=== PATIENT | male | born 1950 | race Caucasian/White ===

== ENCOUNTER 2020-01-04 07:59 | Outpatient (CLI) | payer MEDICARE, SELFPAY ==
[2020-01-04 09:22] LABS: Anion Gap 13.1 mmol/L (7-16); Blood Urea Nitrogen 10 mg/dL (7-18); Calcium 9.7 mg/dL (8.5-10.1); Carbon Dioxide 31 mmol/L (21-32); Chloride 105 mmol/L (98-108); Estimated Glomerular Filt Rate > 60; Glucose 90 mg/dL (70-99); Osmolality Calculated 297 mOsm/kg (285-295); Potassium 5.1 mmol/L (3.5-5.1); Sodium 144 mmol/L (136-145)
[2020-01-04 09:26] LABS: Vitamin B12 > 2000 pg/mL (193-986)
== END 2020-01-04 08:00 | disposition home or self-care (01) ==
LOC: CHSLAB 08:01
PROVIDERS: PCP Family Medicine; Visit Provider Family Medicine
DX: E53.8 Deficiency of other specified B group vitamins (principal); I10 Essential (primary) hypertension
CPT/HCPCS: 36415; 80048; 82607

== ENCOUNTER 2020-04-04 07:22 | Outpatient (CLI) | payer MEDICARE, MEDICAID, SELFPAY ==
--- NOTE | 2020-04-04 10:30 | EST_ITS ---
Patient Info Name: Albert Merino Age: 70 years : 1950 Gender: Male Ht: 71 in Wt: 145 lbs BSA: 1.81 m2 HR: 66 bpm BP: 189 / 102 mmHg Heart Rhythm: Sinus Rhythm Technical Quality: Excellent Exam Date: 04/04/2020 10:35 AM Exam Location: [facility] Patient Status: Outpatient Admit Date: 04/04/2020 Staff Ordering Physician: Kevin Brooks MD Attending Provider: Kevin Brooks MD Exercise Technologist: Celine Mcmahon CRT Exercise Physician: Irene Jimenez CEP Exam Type: CA stress criselda w NM Study Info Indications AbnormalEKG - A nuclear stress test was performed. History/Risk Factors Hypertension: Yes History/Risk Factors HTN. Summary 1. 1. Negative lexiscan stress test for ischemic ST changes by ECG criteria. 2. 2. Baseline hypertension. 3. 3. Nuclear scan to follow and will be reported separately. Please correlate with it. Protocol: LEXISCAN Stress ECG Details Stage: REST Duration (min): 2 min : 1 sec HR (bpm): 68 SBP (mmHg): 189 DBP (mmHg): 102 Stage: REST Duration (min): 2 min : 33 sec HR (bpm): 67 SBP (mmHg): 189 DBP (mmHg): 102 Stage: STAGE 1 Duration (min): 0 min : 10 sec HR (bpm): 65 SBP (mmHg): 189 DBP (mmHg): 102 Stage: RECOVERY Duration (min): 0 min : 49 sec HR (bpm): 89 SBP (mmHg): 189 DBP (mmHg): 102 Stage: RECOVERY Duration (min): 1 min : 49 sec HR (bpm): 106 SBP (mmHg): 151 DBP (mmHg): 73 Stage: RECOVERY Duration (min): 2 min : 49 sec HR (bpm): 97 SBP (mmHg): 153 DBP (mmHg): 75 Stage: RECOVERY Duration (min): 3 min : 49 sec HR (bpm): 95 SBP (mmHg): 163 DBP (mmHg): 80 Stage: RECOVERY Duration (min): 4 min : 49 sec HR (bpm): 93 SBP (mmHg): 161 DBP (mmHg): 81 Stage: RECOVERY Duration (min): 5 min : 49 sec HR (bpm): 93 SBP (mmHg): 155 DBP (mmHg): 80 Stage: RECOVERY Duration (min): 6 min : 15 sec HR (bpm): --- SBP (mmHg): 155 DBP (mmHg): 80 Rest HR: 67 bpm Peak HR: 108 bpm Rest Sys BP: 189 mmHg Peak Sys BP: 163 mmHg Max Pred HR: 148 bpm % Max Pred HR: 73 % Target HR: 126 bpm Max RPP: 17,604 bpm*mmHg Termination Reason: Completion of Protocol Cardiac Symptoms: Lightheaded/pre-syncope, Dyspnea Total Time: 0 min : 10 sec Rest [place] BP: 102 mmHg Peak [place] BP: 80 mmHg Total Dose: 0.4 mg Resting ECG Normal sinus rhythm, anteroseptal infarct, age indeterminate. Stress ECG No ST changes. Arrhythmias None. Report Signatures
== END 2020-04-04 07:23 | disposition home or self-care (01) ==
LOC: CHSIMG 07:24
PROVIDERS: PCP Family Medicine; Visit Provider Family Medicine
DX: R94.31 Abnormal electrocardiogram [ECG] [EKG] (principal)
CPT/HCPCS: 78452; 93017; A9502; J2785

== ENCOUNTER 2022-10-11 09:18 | Outpatient (CLI) | payer MEDICARE, MEDICAID, SELFPAY ==
--- NOTE | ~2022-10-11 | XR_ITS ---
EXAMINATION: XR barium swallow DATE: 10/11/2022 09:45 INDICATION: Dysphagia TECHNIQUE: The patient drank thick barium and gas-producing crystals. Fluoroscopic spot radiographs o f the hypopharynx and esophagus were obtained. Fluoroscopy exposure time was 0.5 minutes. A total of 346 fluoroscopic images were recorded. COMPARISON: None. FINDINGS: The pharynx is symmetric and without evidence of mass lesion or mucosal irregularity. There was some laryngeal penetration without aspiration initial swallow with small amount of contrast jaren g the posterior margin of the epiglottis and minimal amount of contrast along the cephalad aspect of the cords. There is both vallecular and piriform sinus residue. Following the swallow on the double c ontrast imaging of the esophagus the patient experienced an episode of coughing. Some aspirated contr ast was then observed extending down both the left and right mainstem bronchi and into the more perip heral bronchi of the left lower lobe. Given the significant aspiration, the study was terminated at t his point. The esophagus appears normal without mass or stricture. No evident hiatal hernia. IMPRESSION: 1. Small amount of laryngeal penetration without aspiration on the initial swallow with significant a spiration which elicited a cough reflex and with contrast extending CT the bronchi of the left lower lobe on the subsequent swallow. Upon further discussion with the patient, he describes similar prior episodes of coughing after swallowing. For this reason the study was halted at this point. Would stro ngly recommend more focused assessment of pharyngeal dysphagia with a dedicated modified barium swall ow study performed in conjunction with the Department of speech pathology. Reviewed, dictated and finalized at location A. NG FLOOR SERVICE WORKER IMPRESSION: 1. Small amount of laryngeal penetration without aspiration on the initial swal low with significant aspiration which elicited a cough reflex and with contrast extending CT the bronchi of the left lower lobe on the subsequent swallow. Upo n further discussion with the patient, he describes similar prior episodes of c oughing after swallowing. For this reason the study was halted at this point. W ould strongly recommend more focused assessment of pharyngeal dysphagia with a dedicated modified barium swallow study performed in conjunction with the [facility] of speech pathology.
== END 2022-10-11 09:19 | disposition home or self-care (01) ==
LOC: CHSIMG 09:19
PROVIDERS: PCP Family Medicine; Visit Provider Family Medicine
DX: R13.10 Dysphagia, unspecified (principal)
CPT/HCPCS: 74220

== ENCOUNTER 2022-10-22 07:15 | Outpatient (CLI) | payer MEDICARE, MEDICAID, SELFPAY ==
--- NOTE | ~2022-10-22 | CT_ITS ---
EXAMINATION: CT thoracic spine wo/w con DATE: 10/22/2022 08:21 INDICATION: Globus symptoms. TECHNIQUE: Computed tomography (CT) of the thoracic spine was performed without and with 100 mL Omnip aque 350 intravenous contrast. Automated exposure control and iterative reconstruction technique were employed. The dose-length product was 376.17 mGy-cm. COMPARISON: None FINDINGS: There is mild scarring at the lung apices. There is a 6 mm nodule in left upper lobe. Calci fied bilateral hilar and mediastinal lymph nodes are consistent with old granulomatous disease. There is a mildly enlarged lymph node in the superior mediastinum. There are coronary artery calcification s. There is 11 degrees dextroscoliosis of thoracic spine. There is mild chronic anterior wedging of T 1, T2, T11, T12, and L1 vertebral bodies. There is mildly decreased disc height at T3-T4, T4-T5, T5-T 6, and T6-T7. There is multilevel mild facet joint osteoarthritis. At T10-T11, there is severe bilate ral facet joint osteoarthritis. On the right, there is mild neural foraminal stenosis at T10-T11. No central canal stenosis. IMPRESSION: 1. Mild thoracic spondylosis. 2. Thoracic dextroscoliosis. 3. Mildly enlarged mediastinal lymph node, likely reactive. 4. 6 mm pulmonary nodule, probably benign. Consider noncontrast low-dose chest CT in 6-12 months. Reviewed, dictated and finalized at location A. [place] VISUAL MERCHANDISER
--- NOTE | ~2022-10-22 | CT_ITS ---
EXAMINATION: CT soft tissue neck w con DATE: 10/22/2022 08:21 INDICATION: Dysphagia. Globus symptoms. TECHNIQUE: Computed tomography (CT) of the neck was performed with 100 mL Omnipaque-350 intravenous c ontrast. Automated exposure control and iterative reconstruction technique were employed. The dose-le ngth product was 467.50 mGy-cm. COMPARISON: None FINDINGS: There is mild scarring at the lung apices. There are likely changes of ocular lens replacem ent surgeries. The pharynx and larynx are normal. There is an 11 x 13 mm node in the superior mediast inum. There is plaque in the proximal internal carotid arteries with less than 50% stenosis relative to normal distal artery lumen diameters. Calcified bilateral hilar lymph nodes are consistent with ol d granulomatous disease. There is severe cervical spondylosis. There is mild chronic anterior wedging of T1 and T2 vertebral bodies. IMPRESSION: 1. Mildly enlarged mediastinal lymph node, likely reactive. Reviewed, dictated and finalized at location A. HOUSE RECORD CLERK
[2022-10-22 07:39] LABS: Estimated Glomerular Filt Rate > 60
== END 2022-10-22 07:16 | disposition home or self-care (01) ==
LOC: CHSIMG 07:19
PROVIDERS: PCP Family Medicine; Visit Provider Family Medicine
DX: R09.89 Other specified symptoms and signs involving the circulatory and respiratory systems (principal); R13.10 Dysphagia, unspecified; M43.04 Spondylolysis, thoracic region; M41.84 Other forms of scoliosis, thoracic region; R59.0 Localized enlarged lymph nodes; R91.1 Solitary pulmonary nodule
CPT/HCPCS: 70491; 72130; Q9967

== ENCOUNTER 2022-10-29 08:40 | Outpatient (CLI) | payer MEDICARE, MEDICAID, SELFPAY ==
--- NOTE | ~2022-10-29 | XR_ITS ---
EXAMINATION: XR barium swallow modified DATE: 10/29/2022 10:45 INDICATION: Aspiration. TECHNIQUE: The patient was given barium-containing material of multiple consistencies to swallow by t chago speech pathologist while I performed fluoroscopy. Fluoroscopy exposure time was 3.1 minutes. The n umber of fluoroscopy images saved to the PACS was 1. Dose-area product was 1.75 Gy-cm^2. FINDINGS: There is reduced lingual movement. There is reduced laryngeal elevation, reduced tongue base retracti on, reduced pharyngeal squeeze, vallecular residue, and piriform sinus residue. There is laryngeal pe netration and aspiration of thin liquids. IMPRESSION: 1. Laryngeal penetration and aspiration with thin liquids. 2. Please refer to the speech therapy report for recommendations. Reviewed, dictated and finalized at location A. CCO SIZER
--- NOTE | 2022-10-29 10:50 | REHSTMBS ---
Assessment and note entered by Lisha Hernadez, PRODUCTION STAGE MANAGER Modified Barium Swallow Evaluation Diagnosis Aspiration Subjective Information Aspiration was observed during esophagram a few weeks ago therefore patient was referred for a MBS to determine severity. Patient reported that he does not have any difficulties swallowing but does have a lot of phylum in the morning that he eventually clears. Feeding Type Recommended Oral Food Consistency Regular, Level 7 Liquid Consistency Thin (0) Treatment Recommendations Effortful Swallow,Laryngeal Elevation Exerc,Tongue Base Exercise,Vocal Fold Adduction Exer ST Clinical Summary Aspiration was observed during esophagram a few weeks ago therefore patient was referred by his primary doctor for an MBS to determine severity. Patient reported that he does not have any difficulties swallowing. Patient was presented with thin barium, nectar barium, pudding and cracker with barium paste. WFL noted for labial seal with no oral leakage noted. Patient presented with trace silent aspiration with thin fluid post deglutition one time during the study. Moderate/severe residual stasis noted in valleculae and pyriform sinuses throughout the study. Use of chin tuck and effortful swallow throughout the swallow study to improve airway protection and decrease amount of residual. Patient presented with difficulty clearing residual completely with all consistencies trialed placing patient at risk for aspiration post deglutition on residual. Frequent prompts given to patient to use a throat clear and dry swallow to improve. Cough noted 1x post deglutition with thin barium. No aspiration was observed post coughing episode. Discussion with patient regarding residual stasis and decreased strength noted during swallow. Recommendation for ST outpatient treatment to target dysphagia to improve airway protection and decrease risk for aspiration.
== END 2022-10-29 08:41 | disposition home or self-care (01) ==
LOC: CHSIMG 08:42
PROVIDERS: PCP Family Medicine; Visit Provider Family Medicine
DX: R13.19 Other dysphagia (principal)
CPT/HCPCS: 92611

== ENCOUNTER 2022-11-01 06:42 | Outpatient (CLI) | payer MEDICARE, MEDICAID, SELFPAY ==
--- NOTE | ~2022-11-01 | MR_ITS ---
EXAMINATION: MR brain/brain stem wo con DATE: 11/01/2022 07:43 INDICATION: Traumatic brain injury. TECHNIQUE: Magnetic resonance imaging (MRI) of the brain and brainstem was performed without intraven ous contrast. COMPARISON: Neck CT 10/22/2022 FINDINGS: There are scattered areas of nonspecific increased T2-weighted signal intensity in the cere bral white matter and robert. There are old lacunar infarcts in the bilateral basal ganglia. There is n o intracranial hemorrhage, acute infarction, or abnormal intracranial mass lesion. The ventricles are normal in size. There are likely changes of ocular lens replacement surgeries. The paranasal sinuses are clear. The mastoid air cells are normal. IMPRESSION: 1. 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 2. Moderate nonspecific cerebral white matter disease and pontine disease, which likely represents ch ronic small vessel ischemic disease. Reviewed, dictated and finalized at location A. ECTOR SHEET METAL PARTS IMPRESSION: 1. 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 2. Moderate nonspecific cerebral white matter disease and pontine disease, whic h likely represents chronic small vessel ischemic disease.
== END 2022-11-01 06:43 | disposition home or self-care (01) ==
LOC: CHSIMG 06:44
PROVIDERS: PCP Family Medicine; Visit Provider Family Medicine
DX: Z13.850 Encounter for screening for traumatic brain injury (principal); Z86.73 Personal history of transient ischemic attack (TIA), and cerebral infarction without residual deficits; R90.82 White matter disease, unspecified
CPT/HCPCS: 70551

== ENCOUNTER 2023-06-05 10:14 | Outpatient (CLI) | payer MEDICARE, MEDICAID, SELFPAY ==
--- NOTE | ~2023-06-05 | US_ITS ---
EXAMINATION: US carotid duplex BI DATE: 06/05/2023 10:50 INDICATION: Dizziness and giddiness TECHNIQUE: Grayscale, color Doppler, and pulsed Doppler images of the cervical carotid arteries were obtained. The degree of vessel stenosis is placed in one of the following categories: normal, <50%, 5 0-69%, >=70% but less than near-occlusion, near-occlusion, or total occlusion. Note that percent sten osis relative to normal distal artery lumen diameter is indirectly measured from velocity measurement s as described by Jass, et al. Radiology 2003; 229:340-346. Notes: Normal: Peak systolic velocity <125 centimeters/sec and no plaque <50%. Peak systolic velocity <125 ( EDV <40; ICA/CCA PSV ratio <2.0; used these factors only a tandem lesions or low cardiac output or co ntralateral disease) 50-69 %: PSV 125-230 (EDV 40-100; ratio 2-4) >= 70% but less than near occlusion: PSV greater than 230 (EDV > 100; ratio> 4.0) Near Occlusion: PSV that is variable; markedly narrowed lumen Occlusion: Absent flow on color/spectral Doppler and no lumen on rowe scale. COMPARISON: None. FINDINGS: RIGHT: The right common carotid artery (CCA) peak systolic velocity (PSV) is 85 cm/s. The right internal car otid artery (ICA) PSV is 102 cm/s. The right ICA end-diastolic velocity (EDV) is 20 cm/s. The right I CA/CCA PSV ratio is 1.2. The external carotid artery (ECA) PSV is 87 cm/s. There is antegrade flow in the right vertebral artery. LEFT: The left CCA PSV is 87 cm/s. The left ICA PSV is 88 cm/s. The left ICA EDV is 24 cm/s. The left ICA/C CA PSV ratio is 1.0. The ECA PSV is 87 cm/s. There is antegrade flow in the left vertebral artery. IMPRESSION: 1. Less than 50% stenosis in the right internal carotid artery by sonographic criteria. 2. Less than 50% stenosis in the left internal carotid artery by sonographic criteria. Reviewed, dictated and finalized at location B. IMPRESSION: 1. Less than 50% stenosis in the right internal carotid artery by sonographic c cielo. 2. Less than 50% stenosis in the left internal carotid artery by sonographic cr mateusz.
--- NOTE | ~2023-06-05 | CT_ITS ---
CT Scan of the Chest without Contrast: Clinical Indication: Pulmonary nodule Technique: Contiguous sections were acquired throughout the chest without intravenous contrast. Dose reduction technique was used on this scan by utilizing automated exposure control and iterative recon struction technique. The dose-length product (DLP) was 88.63 mGy-cm. Findings: There is no evidence of any significant mediastinal, hilar or axillary lymphadenopathy. There are ath erosclerotic calcifications of the aorta and coronary arteries. There is no evidence of pleural or pericardial effusion. Biapical pulmonary scarring noted. 8 mm left apical nodule is likely related to pulmonary scarring (a xial image 32). 4 mm nodule along the right major fissure noted. Calcified granuloma noted at the rig ht middle lobe. Calcified left lower lobe granulomas are noted. Images through the upper abdomen reveal cholecystectomy clips. Impression: 8 mm left apical nodule is indeterminate, though likely related to apical pulmonary scarring. Accordi ng to Fleischner Society criteria however, for a low-risk patient, follow-up CT scan in 6-12 months r ecommended, then consider 18-24 month follow-up CT. For a high-risk patient, CT scan follow-up at 6-1 2 months and 18-24 months is recommended. Additional subcentimeter nodules and granulomas, as above. Reviewed, dictated and finalized at location M. Impression: 8 mm left apical nodule is indeterminate, though likely related to apical pulmo nary scarring. According to Fleischner Society criteria however, for a low-risk patient, follow-up CT scan in 6-12 months recommended, then consider 18-24 mon th follow-up CT. For a high-risk patient, CT scan follow-up at 6-12 months and 18-24 months is recommended. Additional subcentimeter nodules and granulomas, as above.
== END 2023-06-05 10:15 | disposition home or self-care (01) ==
PROVIDERS: PCP Family Medicine; Visit Provider Family Medicine
DX: R91.1 Solitary pulmonary nodule (principal); I65.23 Occlusion and stenosis of bilateral carotid arteries
CPT/HCPCS: 71250; 93880

== ENCOUNTER 2024-05-27 15:38 | Outpatient (CLI) | payer MEDICARE, MEDICAID, SELFPAY ==
--- NOTE | ~2024-05-27 | XR_ITS ---
EXAMINATION: XR abdomen obstructive series DATE: 05/27/2024 16:33 INDICATION: Chest pain and breathing. TECHNIQUE: Upright and supine views of the abdomen on 4 radiographs were obtained. COMPARISON: Abdomen radiographs 09/25/12 FINDINGS: There are no dilated loops of bowel. There is a moderate volume of stool in the colon. No f ree intraperitoneal gas. There are surgical clips in the abdomen. IMPRESSION: 1. Nonobstructive bowel gas pattern. Reviewed, dictated and finalized at location A.
--- NOTE | ~2024-05-27 | XR_ITS ---
EXAMINATION: XR chest 2V DATE: 05/27/2024 16:33 INDICATION: Chest pain on breathing. TECHNIQUE: Frontal and lateral views of the chest were obtained. COMPARISON: Chest single view 04/20/2009 FINDINGS: There is mild scarring at the lung apices. There are densities at left lung base that may b e old granulomatous disease or aspirated barium. No pleural effusion or pneumothorax. The heart size is normal. There are surgical clips in the abdomen. IMPRESSION: 1. Mild scarring at the lung apices. Reviewed, dictated and finalized at location A.
[2024-05-27 16:06] LABS: Basophils Absolute Auto 0.02 K/mm3 (0.00-0.10); Basophils Percent Auto 0.3 % (0.0-1.0); Eosinophils Absolute Auto 0.06 K/mm3 (0.02-0.50); Eosinophils Percent Auto 0.8 % (1.0-6.0); Hemoglobin 11.3 g/dL (12.4-15.3); Immature Granulocyte Absolute 0.02 K/mm3 (0.00-0.00); Immature Granulocyte Percent A 0.3 % (0.0-0.0); Lymphocytes Absolute Auto 2.05 K/mm3 (1.10-4.50); Mean Corpuscular HGB Conc 33.2 g/dL (32-36); Mean Corpuscular Hemoglobin 29.3 pg (27.0-31.0); Mean Corpuscular Volume 88.1 fL (78.0-102.0); Mean Platelet Volume 9.1 fl (8.7-11.0); Monocytes Absolute Auto 0.89 K/mm3 (0.10-0.90); Monocytes Percent Auto 12.6 % (2.0-11.0); Neutrophils Absolute Auto 4.03 K/mm3 (1.70-7.20); Platelet Count Result 308 K/mm3 (150-420); Red Blood Count 3.86 M/mm3 (4.70-6.10); White Blood Count 7.1 K/mm3 (4.8-10.8)
[2024-05-27 16:25] LABS: Add Urine Microscopic? NO; Appearance Urine Clear (Clear); Bilirubin Urine Negative (Negative); Blood Urine Negative (Negative); Color Urine Light Yellow (Yellow); Glucose Urine UA Negative (Negative); Ketones Urine Negative (Negative); Leukocyte Esterase Ur Negative (Negative); Nitrate Urine Negative (Negative); Protein Urine Negative (Negative); Urobilinogen Urine 0.2 mg/dL (0.2-1.0)
[2024-05-27 16:35] LABS: Alanine Aminotransferase 18 U/L (16-63); Alkaline Phosphatase 139 U/L (46-116); Amylase 26 U/L (25-115); Anion Gap 10 mmol/L (4-12); Aspartate Amino Transferase 14 U/L (15-37); Bilirubin,Total 0.3 mg/dL (0.00-1.00); Blood Urea Nitrogen 10 mg/dL (7-18); Calcium 8.8 mg/dL (8.5-10.1); Carbon Dioxide 25 mmol/L (21-32); Chloride 100 mmol/L (98-108); Creatine Kinase 55 U/L (39-308); Estimated Glomerular Filt Rate > 60; Glucose 109 mg/dL (70-99); Lipase 19 U/L (16-77); Osmolality Calculated 280 mOsm/kg (285-295); Potassium 3.8 mmol/L (3.5-5.1); Sodium 135 mmol/L (136-145); Total Protein 7.6 g/dL (6.4-8.2); Troponin I 10.4 ng/L (0.00-60.4)
== END 2024-05-27 15:39 | disposition home or self-care (01) ==
LOC: CHSLAB 15:45
PROVIDERS: PCP Family Medicine; Visit Provider Family Medicine
DX: R10.13 Epigastric pain (principal); R91.8 Other nonspecific abnormal finding of lung field
CPT/HCPCS: 36415; 71046; 74019; 80053; 81003; 82150; 82550; 82553; 83690; 84484; 85025

== ENCOUNTER 2024-07-31 09:19 | Outpatient (CLI) | payer MEDICARE, MEDICAID, SELFPAY ==
[2024-07-31 09:47] LABS: Basophils Absolute Auto 0.04 K/mm3 (0.00-0.10); Basophils Percent Auto 0.6 % (0.0-1.0); Eosinophils Absolute Auto 0.08 K/mm3 (0.02-0.50); Eosinophils Percent Auto 1.2 % (1.0-6.0); Hematocrit 37.3 % (37.0-46.0); Hemoglobin 12.4 g/dL (12.4-15.3); Immature Granulocyte Absolute 0.02 K/mm3 (0.00-0.00); Immature Granulocyte Percent A 0.3 % (0.0-0.0); Lymphocytes Absolute Auto 1.73 K/mm3 (1.10-4.50); Lymphocytes Percent Auto 25.9 % (18.0-42.0); Mean Corpuscular HGB Conc 33.2 g/dL (32-36); Mean Corpuscular Hemoglobin 30.5 pg (27.0-31.0); Mean Corpuscular Volume 91.6 fL (78.0-102.0); Mean Platelet Volume 9.1 fl (8.7-11.0); Monocytes Absolute Auto 0.67 K/mm3 (0.10-0.90); Neutrophils Absolute Auto 4.14 K/mm3 (1.70-7.20); Platelet Count Result 338 K/mm3 (150-420); Red Blood Count 4.07 M/mm3 (4.70-6.10); Red Cell Distribution Width 13.3 % (11.6-14.4); White Blood Count 6.7 K/mm3 (4.8-10.8)
[2024-07-31 10:23] LABS: Anion Gap 9 mmol/L (4-12); Blood Urea Nitrogen 13 mg/dL (7-18); Calcium 9.5 mg/dL (8.5-10.1); Carbon Dioxide 28 mmol/L (21-32); Chloride 105 mmol/L (98-108); Estimated Glomerular Filt Rate > 60; Ferritin 56 ng/mL (26-388); Glucose 110 mg/dL (70-99); Iron 142 ug/dL (65-175); Osmolality Calculated 295 mOsm/kg (285-295); Percent Iron Saturation 42 % (12-57); Potassium 5.4 mmol/L (3.5-5.1); Sodium 142 mmol/L (136-145)
== END 2024-07-31 09:20 | disposition home or self-care (01) ==
LOC: CHSLAB 09:23
PROVIDERS: PCP Family Medicine; Visit Provider Family Medicine
DX: I10 Essential (primary) hypertension (principal); D50.8 Other iron deficiency anemias
CPT/HCPCS: 36415; 80048; 82728; 83540; 83550; 85025

== ENCOUNTER 2024-09-24 11:28 | Outpatient (CLI) | payer MEDICARE, MEDICAID, SELFPAY ==
--- NOTE | ~2024-09-24 | MR_ITS ---
EXAMINATION: MR brain/brain stem wo/w con DATE: 09/24/2024 12:27 INDICATION: Dizziness. TECHNIQUE: Magnetic resonance imaging (MRI) of the brain and brainstem was performed without and with 14 mL MultiHance intravenous contrast. COMPARISON: Brain MRI 11/01/2022 FINDINGS: There are scattered areas of nonspecific increased T2-weighted signal intensity in the cere bral white matter and robert. There are old lacunar infarcts in the bilateral basal ganglia. There is n o intracranial hemorrhage, acute infarction, or abnormal intracranial mass lesion. The ventricles are normal in size. There is mucosal thickening in the paranasal sinuses. There are likely changes of oc ular lens replacement surgeries. The mastoid air cells are normal. IMPRESSION: 1. 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 2. Stable moderate nonspecific cerebral white matter disease and pontine disease, which likely repres ents chronic small vessel ischemic disease. Reviewed, dictated and finalized at location A. CAL INSTRUMENTS ASSEMBLER IMPRESSION: 1. 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 2. Stable moderate nonspecific cerebral white matter disease and pontine diseas e, which likely represents chronic small vessel ischemic disease.
--- OUTSIDE RECORDS SUMMARY | 2024-09-24 12:28 | XMS_ITS | Clinical Summary ---
Author Organization [facility] Address Counts include 234 beds at the [facility] [facility] [place] [address] [place] [address] Care Team Providers Care Automatic Die Cutting Machine Operator Name Role Phone Kevin Brooks MD Primary Care Provider [phone] Hrai Foster MD Unavailable Navjot Rojas MD Unavailable Unavailable Sophia Clay NP Unavailable [phone] Jill Boone MD Unavailable Allergies Active Allergy Reactions Criticality Noted Date Comments Levofloxacin Myalgias 01/17/2018 Seasonal Cough 02/11/2018 Medications finasteride 5 MG tablet Take 1 tablet (5 mg total) by mouth daily. Active vitamin B-12 (VITAMIN B12) 100 MCG tablet Take 0.5 tablets (50 mcg total) by mouth daily. Active atorvastatin 40 MG tablet Take 1 tablet (40 mg total) by mouth nightly at bedtime. 04/04/2018 Active famotidine 20 MG tablet Take 1 tablet (20 mg total) by mouth daily. 01/07/2020 Active Glucosamine 500 MG Cap Active LOSARTAN 100 MG tablet TAKE ONE TABLET BY MOUTH DAILY 90 tablet 3 08/02/2021 Active XARELTO 2.5 MG tablet TAKE ONE TABLET BY MOUTH TWICE A DAY 180 tablet 05/17/2022 Active cilostazol (PLETAL) 50 MG tablet Take 1 tablet (50 mg total) by mouth 2 (two) times daily. 60 tablet 11 05/15/2024 Active Active Problems Problem Noted Date Diagnosed Date Atherosclerosis of coronary artery of [place] heart with stable angina pectoris 05/11/2020 History of coronary artery stent placement 05/11 Carotid artery disease without cerebral infarcti on 04/01/2018 PAD (peripheral artery disease) 02/11/2018 Essential hypertension 02/11/2018 Hyperlipidemia, unspecified hyperlipidemia type 02/11/2018 Tobacco smoke exposure 02/11/2018 Encounters Date Type Department Care Team Description 09/21/2024 [facility] [address] [place] [address] Jill Boone MD Question from Last 3 Months Immunizations Name Administration Dates Next Due Influenza (Generic) 07/02/2012 Influenza Adult (Generic) 05/31/2022,05/2021,06/03/2020,08/21/2019,05/27,05/03/2017,05/03/2016,06/11/2014,07/08/20 13 Pneumococcal (Pneumovax 23) 06/11/2014, 1 Pneumococcal (Prevnar 13) 10/18/2015 Tdap (Generic) 03/18/2013 Family History Medical History Relation Comments Alcohol Abuse Father gout Mother Relation Status Comments Brother 1 Alive Brother 2 Alive Father alcoholism Maternal Grandfather Maternal Grandmother Mother hepatic carcinom a Paternal Grandfather Paternal Grandmother Sister 1 Alive Sister 2 Alive Sister 3 Alive Social History Tobacco Use Types Packs/Day Years Used Date Smoking Tobacco: Former Cigarettes 1 40 Smokeless Tobacco: Never Alcohol Use Standard Drinks/Week Comments No 0 (1 standard drink = 0.6 oz pur e alcohol) quit in 2017 PHQ-2 Answer Date Recorded PHQ-2 Score - If the patient scores above 3, please move on to questions 3-9 0 02/21/2022 Sex and Gender Information Value Date Recorded Sex Assigned at Not on file Legal Sex Male 10:44 PM CDT Gender Identity Not on file Sexual Orientation Not on file Occupation Industry Job Start Date Job End Date disabled Not on file Not on file Not on file Last Filed Vital Signs Vital Sign Reading Time Taken Comments Blood Pressure 150/87 04/22/2024 2:20 PM CDT Pulse 89 04/22/2024 2:20 PM CDT Temperature 36.1 ??C (97 ??F) 05/05/2020 7:52 AM CDT Respiratory Rate 20 04/22/2024 2:20 PM CDT Oxygen Saturation 99% 04/22/2024 2:20 PM CDT Inhaled Oxygen Concentration - - Weight 67.6 kg (149 lb) 04/22/2024 2:20 PM CDT Height 180.3 cm (5' 11 ) 04/22/2024 2:20 PM CDT Body Mass Index 20.78 04/22/2024 2:20 PM CDT Plan of Treatment Upcoming Encounters Date Type Department Care Team (Late st Contact Info) Description 11/12/2024 9:[address] [facility] [address] [place] [address] [place] [address] Jill Boone MD [address] [place], [place] [id number] 11/16/2024 1:45 PM CDT Office Visit [facility] [id number] [place] [address] Jill Boone MD [address] [place], [place] [id number] Health Maintenance Due Date Last Done Comments ASCVD Statin 1950 Hepatitis C 01/24/1966 Lung Cancer Screening 01/24/1998 Zoster Vaccines (1 of 2) 01/24/1998 Annual Medicare Wellness Visit 01/24/2013 ASCVD LDL 04/02/2019 04/02/2018 RSV Immunization or 60+ Years (1 - 1-dose 75+ series) 01/24/2023 DTaP, Tdap and Td Vaccines (2 - Td or Tdap) 03/18/2023 03/18/2013 COVID-19 Vaccine ( season) 2024 05/17/2022, 05/30/2021, 11/09/2020, Additional history exists Influenza Adult (#1) 2024 05/31/2022, 05/05/2021, 06/03/2020, Additional history exists Pneumococcal Vaccine: 65+ Years Completed 10/18/2015, 06/11/2014, 04/24/2011 Meningococcal B Vaccine Aged Out No l onger eligible based on patient's age to complete this topic Meningococcal Vaccine Aged Out No viki fred eligible based on patient's age to complete this topic RSV Immunizations Under 20 Months Aged Out No longer eligible based on patient's age to complete this topic Medical Devices Implanted Type Area Faa Certified Powerplant Mechanic Device Identifier Shelf Expiration Date Model / Serial / Lot Cv-Osiro Aly Stent-Lcx D [id number]/10/20 20 Implanted:Qty: 1 on 05/05/2020 by Navjot Rojas MD Stent Coronary LCX [employer] 05/13/2021 [id number] / / [id number] Description:LCX distal: Biot ronik Osiro 2.25mm x 30mm Cv-Osior Aly Stent-Lcx M 2.5x22- 0 Implanted:Qty: 1 on 05/05/2020 by Navjot Rojas MD Stent Coronary LCX [employer]IK 04/19/2021 [id number] / / [id number] Description:LCx mid: Biotron ik Osiro 2.5mm x 22mm Protege [id number] 0cm - [id number] Implanted:05/01 by Navjot Rojas MD at [facility] (Quantity not on file) [employer] 08/06/2019 [id number] / / [id number] Procedures Procedure Name Priority Date/Time Associated Diagnosis Comments LIPID PANEL Routine 04/02/2018 PAD (peripheral artery disease) Carotid artery disease without cerebral infarction Essential hypertension Hyperlipidemia, unspecified hyperlipidemia type from Last 3 Months or Most Recently Relevant to Health Maintenance Results * LIPID PANEL (04/02/2018) CHOLESTEROL 164 HDL 47 TRIGLYCERIDES 86 LDL (CALCULATED) 100 04/02/2018 Hari Foster MD LABORATORY Final Result from Last 3 Months or Most Recently Relevant to Health Maintenance Insurance MEDICAID [employer] MEDICAID Advance Directives * Full Code (Latest Code Status on File) Date Activated Date Inactivated Comments 05/05/2020 11:14 AM 05/05/2020 7:32 PM * Full Code Date Activated Date Inactivated Comments 05/01/2018 11:10 AM 05/01/2018 6:58 PM Care Teams Automatic Die Cutting Machine Operator Relationship Specialty Start Date End Date Kevin Brooks MD [address] [place] [address] PCP - General FAMILY PRACTICE 01/15/18 Hari Foster MD [address] [place] [address] Vascular/Parking Garage Manager INTERNAL MEDICINE 01/15/18 Navjot Rojas MD [address] [place] [address] Consulting Physician INTERVENTIONAL CARDIOLOGY 04/07/20 Sophia Clay NP [address] [place] [phone] Nurse Practitioner Nurse Practitioner Family 04/07/20 Jill Boone MD [address] [place] [address] Consulting Physician CARDIOVASCULAR DISEASE 03/01/23
--- OUTSIDE RECORDS SUMMARY | 2024-09-24 12:28 | XMS_ITS | CONTINUITY OF CARE DOCUMENT ---
Author Name remington macedo Address Unknown Organization [facility] Address [address] [place] [address] Phone [phone] Care Team Providers Care Technical Sales Representatives Name Role Phone Krish Panchal MD Unavailable SHEREE SANTACRUZ MD Unavailable [phone] SHEREE SANTACRUZ MD Unavailable PROBLEMS Condition Status Date Provider Notes HTN essential active Krish Panchal MD Fatigue active Krish Panchal MD Dizziness active Krish Panchal MD Shortness of breath--nl stress and echo active Krish Panchal MD ENCOUNTERS Date Type Provider Location Encounter Diag nosis - In-person encounter Office Visit [facility] Shortness of breath--nl stress and echo - In-person encounter Office Visit [facility] Shortness of breath--nl stress and echoDizzinessFatigueHTN essential VITAL SIGNS Date Observation Value Provider blood pressure, diastolic 82 mm[Hg] Us sally Panchal MD blood pressure, systolic 140 mm[Hg] Kasie Panchal MD pulse rate 70 /min Krish Panchal MD oxygen saturation, oximetry 99 % Krish Panchal MD respiratory rate E&M 16 /min Krish james MD weight E&M 146 [lb_av] Krish Panchal MD blood pressure, diastolic 90 mm[Hg] Us sally Panchal MD blood pressure, systolic 140 mm[Hg] Kasie Panchal MD pulse rate 66 /min Krish Panchal MD oxygen saturation, oximetry 99 % Krish Panchal MD respiratory rate E&M 20 /min Krish james MD weight E&M 151 [lb_av] Krish Panchal MD height E&M 72 [in_i] Krish Panchal MD ALLERGIES No Known Drug Allergies HISTORY OF MEDICATION USE Medication Status Instructions Dates Provider Indications Com ments B-12 1000 MCG ORAL CAPSULE active Krish Pacnhal MD RANITIDINE HCL 150 MG ORAL TABLET active HALF TAB TWICE DAILY Krish Panchal MD BENICAR 20 MG ORAL TABLET active Krish Panchal MD ASPIRIN 81 MG ORAL TABLET active ONE TAB. DAILY Krish Panchal MD SOCIAL HISTORY Date Observation Value Provider social history reviewed E&M revi ewed - no changes required Krish Panchal MD smoking/tobacco cess ation, patient education and counseling yes Krish Panchal MD cigarette use yes Krish Chowdary smoking status Former smoker Krish Panchal MD smoking/tobacco cess ation, patient education and counseling yes Krish Panchal MD cigarette use yes Krish Chowdary social history reviewed E&M revi ewed - no changes required Krish Panchal MD smoking status Former smoker Krish Panchal MD social history E&M Reduced his E Zechariah consumption D rank 7-8 beers in past 3 months P bel is a former smoker. A lcohol Use - yes Smoking History: Luz staples is a former smoker. Krish Panchal MD FAMILY HISTORY Family Member Condition Father Negative FH of Coron ana Artery Disease INSURANCE PROVIDERS Payer name Policy type / Coverage type [place] red democrat ID HEALTHCARE AND FAMILY SERVICES Medicaid 0 [id number] [place] [employer]IC[employer] Medicare [id number] TREATMENT PLAN Date Name Performer Follow-up faxed to kalyan allen/pcp:BP 140/82 His updated medication list for this problem includes: Benicar 20 Mg Oral Tabs (Olmesartan medoxomil) Aspirin 81 Mg Tabs (Aspirin) ..... One tab. daily Krish Panchal MD Date Name STR - Adenosine Complete Echo
== END 2024-09-24 11:29 | disposition home or self-care (01) ==
PROVIDERS: PCP Family Medicine; Visit Provider Family Medicine
DX: R42 Dizziness and giddiness (principal); R90.82 White matter disease, unspecified
CPT/HCPCS: 70553; A9577

== ENCOUNTER 2024-09-28 09:31 | Outpatient (CLI) | payer MEDICARE, MEDICAID, SELFPAY ==
--- NOTE | 2024-09-28 | ECHO_ITS ---
Patient Info Name: Albert Merino Age: 74 years : 1950 Gender: Male Ht: 71 in Wt: 145 lbs BSA: 1.81 m2 HR: 81 bpm BP: 162 / 92 mmHg Technical Quality: Good Exam Date: 09/28/2024 9:46 AM Exam Location: Echo Lab Patient Status: Outpatient Admit Date: 09/28/2024 Staff Ordering Physician: Kevin Brooks MD Tank Charger: Gely Menjivar RDCS Attending Provider: Kevin Brooks MD Referring Physician: Cecilia HINTON; Exam Type: CA echo doppler color flow Study Info Indications R42 - Dizziness and giddiness I10 - Essential (primary) hypertension Complete two-dimensional, color flow and Doppler transthoracic echocardiogram is performed. History/Risk Factors Hypertension: Yes Summary 1. Complete two-dimensional, color flow and Doppler transthoracic echocardiogram is performed. 2. Left ventricular chamber dimension is normal. 3. Left ventricular systolic function is normal, estimated at 55-60%. 4. There is mild concentric increased left ventricular wall thickness. 5. The left ventricular diastolic function is grade I diastolic dysfunction. 6. E/e' 14 is mildly elevated. 7. There is mild aortic valve sclerosis. 8. The mitral valve has moderately calcified annulus. 9. There is mild to moderate mitral valve regurgitation. 10. There is trace tricuspid valve regurgitation. 11. No pulmonary hypertension, estimated pulmonary arterial systolic pressure is 26 mmHg. Left Ventricle E/e' 14 is mildly elevated. Left ventricular chamber dimension is normal. Left ventricular systolic function is normal, estimated at 55-60%. There is mild concentric increased left ventricular wall thickness. The left ventricular diastolic function is grade I diastolic dysfunction. Right Ventricle Right ventricular chamber dimension is normal. Right ventricular systolic function is normal. Left Atria Left atrial chamber dimension is normal. Right Atria Right atrial chamber dimension is normal. Aortic Valve The aortic valve is trileaflet. There is mild aortic valve sclerosis. There is no aortic valve stenosis. There is no aortic valve regurgitation. Pulmonic Valve There is no pulmonic regurgitation. Mitral Valve The mitral valve has moderately calcified annulus. There is no mitral valve stenosis. There is mild to moderate mitral valve regurgitation. Tricuspid Valve There is trace tricuspid valve regurgitation. No pulmonary hypertension, estimated pulmonary arterial systolic pressure is 26 mmHg. Pericardium/Pleural There is no pericardial effusion. Inferior Vena Cava Normal inferior vena cava with >50% collapse upon inspiration consistent with normal right atrial pressure, 5 mmHg. Aorta The aortic root size at the sinus of Valsalva is normal. Left Ventricular Outflow Tract Name Value Normal LVOT 2D LVOT Diameter 2.1 cm LVOT Doppler LVOT Peak Gradient 4 mmHg LVOT Mean Gradient 2 mmHg LVOT VTI 18 cm LVOT VTI/AV VTI Ratio 0.8 LVOT Stroke Volume 60 ml LVOT CO 4.8 l/min LVOT CI 2.7 l/min/m2 Pulmonic Valve Name Value Normal RVOT Doppler RVOT Peak Gradient 5 mmHg PV Doppler PV Peak Gradient 4 mmHg Mitral Valve Name Value Normal MV Doppler MV Decel [place] 491 cm/s2 MV PHT 45 ms MV Area (PHT) 4.9 cm2 4.0-5.0 MV Regurgitation Doppler MR Peak Gradient 155 mmHg MV Diastolic Function MV E Peak Velocity 76 cm/s MV A Peak Velocity 126 cm/s MV E/A 0.6 MV Decel Time 155 ms Tricuspid Valve Name Value Normal TV Regurgitation Doppler TR Peak Velocity 230 cm/s TR Peak Gradient 20 mmHg Estimated PAP/RSVP RA Pressure 5 mmHg <=5 PA Systolic Pressure 26 mmHg <36 RV Systolic Pressure 26 mmHg <36 Aorta Name Value Normal Ascending Aorta Ao Root Diameter (MM) 3.9 cm Ao Root Diam Index (MM) 2.2 cm/m2 Aortic Valve Name Value Normal AV Doppler AV Peak Velocity 128 cm/s AV Peak Gradient 7 mmHg AV Mean Gradient 4 mmHg AV VTI 22 cm AV Area (Cont Eq VTI) 2.7 cm2 >=3.0 AV Area (Cont Eq Ray) 2.5 cm2 AV Regurgitation 2D LVOT Area 3.3 cm2 Ventricles Name Value Normal LV Dimensions 2D/MM IVS Diastolic Thickness (2D) 1.2 cm 0.6-1.0 IVS Diastole Thickness (MM) 0.8 cm 0.6-1.0 LVID Diastole (2D) 3.5 cm 4.2-5.8 LVID Diastole (MM) 5.1 cm 4.2-5.8 LVIW Diastolic Thickness (2D) 1.1 cm 0.6-1.0 LVIW Diastolic Thickness (MM) 1.1 cm 0.6-1.0 LVID Systole (2D) 2.5 cm 2.5-4.0 LVID Systole (MM) 2.8 cm 2.5-4.0 LVOT Diameter 2.1 cm LV Mass (2D Cubed) 124.88 g 88.00-224.00 LV Mass Index (2D Cubed) 69 g/m2 49-115 Relative Wall Thickness (2D) 0.63 LV Mass (MM Cubed) 174.21 g 88.00-224.00 LV Mass Index (MM Cubed) 96 g/m2 49-115 Relative Wall Thickness (MM) 0.43 LV Fractional Shortening/Ejection Fraction 2D/MM LV Fractional Shortening (2D) 29 % 25-43 LV Fractional Shortening (MM) 46 % 25-43 LV EF (MM Teicholz) 77 % 52-72 LV EF (2D Teicholz) 57 % 52-72 LV Diastolic Volume (4C MOD) 72 ml LV EF (4C MOD) 57 % LV Diastolic Volume (2C MOD) 69 ml LV EF (2C MOD) 58 % LV Diastolic Volume (BP MOD) 70 ml 62-150 LV Diastolic Volume Index (BP MOD) 39 ml/m2 34-74 LV Systolic Volume (BP MOD) 31 ml 21-61 LV Systolic Volume Index (BP MOD) 17 ml/m2 11-31 LV EF (BP MOD) 56 % 52-72 LV Diastolic Length (4C) 8.0 cm LV Systolic Length (4C) 7.6 cm LV Stroke Volume (4C MOD) 41 ml Atria Name Value Normal LA Dimensions LA Dimension (MM) 3.4 cm 3.0-4.1 LA Volume (4C A-L) 30 ml LA Volume (BP A-L) 43 ml RA Dimensions RA Area (4C) 9.4 cm2 <=18.0 Report Signatures
--- NOTE | ~2024-09-28 | US_ITS ---
EXAMINATION: US carotid duplex BI DATE: 09/28/2024 11:24 GROUNDS FOREMAN INDICATION: Dizziness TECHNIQUE: Grayscale, color Doppler, and pulsed Doppler images of the cervical carotid arteries were obtained. The degree of vessel stenosis is placed in one of the following categories: normal, <50%, 50-69%, >=7 0% but less than near-occlusion, near-occlusion, or total occlusion. Note that percent stenosis relative to normal distal artery lumen diameter is indirectly measured fro m velocity measurements as described originally by Jass, et al. Radiology 2003; 229:340-346 and upda melita by Je Tuttle et al STROKE 2012;43(3);915-921. COMPARISON: 06/05/2023 FINDINGS: There is mild atherosclerosis of both carotid arteries. Peak systolic velocity (in cm/s) is detailed below RIGHT: Right common carotid artery (CCA): 85 cm/s. Right internal carotid artery (ICA) PSV: 90 cm/s. Right ICA end-diastolic velocity (EDV): 27 cm/s. Right ICA/CCA PSV ratio is 1.1. Right external carotid artery (ECA): 68cm/s. There is antegrade flow in the right vertebral artery with a LEFT: Left common carotid artery (CCA): 77 cm/s. Left internal carotid artery (ICA) PSV: 114 cm/s. Left ICA end-diastolic velocity (EDV): 26 cm/s. Left ICA/CCA PSV ratio is 1.5. Left external carotid artery (ECA): 81cm/s. There is antegrade flow in the left vertebral artery. IMPRESSION: 1. Less than 50% stenosis in the right internal carotid artery. 2. Less than 50% stenosis in the left internal carotid artery. Reviewed, dictated and finalized at location A. NDS FOREMAN
--- OUTSIDE RECORDS SUMMARY | 2024-09-28 10:10 | XMS_ITS | CONTINUITY OF CARE DOCUMENT ---
Author Name remington macedo Address Unknown Organization [facility] Address [address] [place] [address] Phone [phone] Care Team Providers Care Cracking Unit Operator Name Role Phone Krish Panchal MD Unavailable [phone] SHEREE SANTACRUZ MD Unavailable SHEREE SANTACRUZ MD Unavailable PROBLEMS Condition Status Date Provider Notes Shortness of breath--nl stress and echo active Krish Panchal MD Dizziness active Krish Panchal MD Fatigue active Krish Panchal MD HTN essential active Krish Panchal MD ENCOUNTERS Date Type [...] B-12 1000 MCG ORAL CAPSULE active Krish Panchal MD RANITIDINE HCL 150 MG ORAL TABLET [...] Luz staples is a former smoker. Krish Panchla MD FAMILY HISTORY Family Member Condition Father Negative FH of Coron ana Artery Disease INSURANCE PROVIDERS Payer name Policy type / Coverage type [place] red green party ID HEALTHCARE AND FAMILY SERVICES Medicaid 0 [id number] [place] MEDICARE Medicare [id number] TREATMENT PLAN Date Name Performer Follow-up faxed to kalyan allen/pcp:BP 140/82 His updated medication list for this problem includes: Benicar 20 Mg Oral Tabs (Olmesartan medoxomil) Aspirin 81 Mg Tabs (Aspirin) ..... One tab. daily Krish Panchal MD Date Name STR - Adenosine Complete Echo
--- OUTSIDE RECORDS SUMMARY | 2024-09-28 10:10 | XMS_ITS | Clinical Summary ---
Author Organization [facility] Address [facility] access hospital[address] [facility] [place] [address] [place] [address] Care Team Providers Care Counter Tacker Name Role Phone Kevin Brooks MD Primary Care Provider [phone] Hari Foster MD Unavailable Navjot Rojas MD Unavailable Unavailable Sophia Clay NP Unavailable [phone] Jill Boone MD Unavailable Allergies Active Allergy [...] Diagnosed Date Atherosclerosis of coronary artery of [place] heart with stable angina pectoris 05/11/2020 History of coronary artery stent placement 05/11 Carotid artery disease without cerebral infarcti on 04/01/2018 PAD (peripheral artery disease) 02/11/2018 Essential hypertension 02/11/2018 Hyperlipidemia, unspecified hyperlipidemia type 02/11/2018 Tobacco smoke exposure 02/11/2018 Encounters Date Type Department Care Team Description 09/21/2024 [facility] [address] [place] [address] Jill Boone MD Question from [...] 9:[address] [facility] [address] [place] [address] [place] [address] Jill Boone MD [address] [place], [place] [id number] 11/16/2024 1:45 PM CDT Office Visit [facility] [id number] [place] [address] Jill Boone MD [address] [place], [place] [address] Health Maintenance Due Date Last Done Comments [...] this topic Medical Devices Implanted Type Area Large Engine Assembler Device Identifier Shelf Expiration Date Model / Serial / Lot Cv-Osiro Aly Stent-Lcx D [id number]/10/20 20 Implanted:Qty: 1 on 05/05/2020 by Navjot Rojas MD Stent Coronary LCX BIOTRONIK 05/13/2021 [id number] / / [id number] Description:LCX distal: Biot ronik Osiro 2.25mm x 30mm Cv-Osior Aly Stent-Lcx M 2.5x22- 0 Implanted:Qty: 1 on 05/05/2020 by Navjot Rojas MD Stent Coronary LCX BIOTRONIK 04/19/2021 [id number] / / [id number] Description:LCx mid: Biotron ik Osiro 2.5mm x 22mm Protege [id number] 0cm - [id number] Implanted:05/01 by Navjot Rojas MD at [facility] (Quantity not on file) Leg [employer] 08/06/2019 [id number] / / [id number] Procedures Procedure Name Priority Date/Time Associated Diagnosis [...] 11:10 AM 05/01/2018 6:58 PM Care Teams Counter Tacker Relationship Specialty Start Date End Date Kevin Brooks MD [address] [place] [address] PCP - General FAMILY PRACTICE 01/15/18 Hari Foster MD [address] [place] [address] Vascular/Electronic Gluer INTERNAL MEDICINE 01/15/18 Navjot Rojas MD [address] [place] [address] Consulting Physician INTERVENTIONAL CARDIOLOGY 04/07/20 Sophia Clay NP [address] [place] [phone] Nurse Practitioner Nurse Practitioner Family 04/07/20 Jill Boone MD [address] [place] [address] Consulting Physician CARDIOVASCULAR DISEASE 03/01/23
== END 2024-09-28 09:32 | disposition home or self-care (01) ==
PROVIDERS: PCP Family Medicine; Visit Provider Family Medicine
DX: R42 Dizziness and giddiness (principal); I65.23 Occlusion and stenosis of bilateral carotid arteries; R90.82 White matter disease, unspecified; I10 Essential (primary) hypertension
CPT/HCPCS: 93306; 93880

== ENCOUNTER 2025-02-15 10:45 | Outpatient (CLI) | payer MEDICARE, MEDICAID, SELFPAY ==
--- NOTE | ~2025-02-15 | US_ITS ---
EXAMINATION: US soft tissue head and neck DATE: 02/15/2025 11:30 INDICATION: Localized swelling TECHNIQUE: Multiple grayscale and Doppler ultrasound images of the region of concern at the left neck were obtained. COMPARISON: None FINDINGS: There is a 3.1 x 1.7 x 1.9 cm hypoechoic mass with mildly lobulated margins and with no echogenic uriah tral hilum consistent with an enlarged right jugular chain lymph node. There is an adjacent normal si zed lymph nodes measuring 6 x 5 x 4 mm. Atherosclerotic calcifications are seen at the left carotid b ulb. IMPRESSION: 1. Enlarged left jugular chain lymph node measuring 3.1 x 1.7 x 1.9 cm which raises concern for michaela rivas either metastatic disease or lymphoma. Would recommend ultrasound-guided core needle biopsy. Reviewed, dictated and finalized at location A. IMPRESSION: 1. Enlarged left jugular chain lymph node measuring 3.1 x 1.7 x 1.9 cm which ra ises concern for malignancy either metastatic disease or lymphoma. Would recomm end ultrasound-guided core needle biopsy.
[2025-02-15 11:45] LABS: Basophils Percent Auto 0.3 % (0.2-1.2); Eosinophils Percent Auto 0.5 % (0-4.4); Hematocrit 34.5 % (42.0-52.0); Hemoglobin 10.7 g/dL (14.0-18.0); Immature Granulocyte Absolute 0.03 K/mm3 (0.00-0.031); Immature Granulocyte Percent A 0.5 % (0-0.5); Lymphocytes Absolute Auto 1.78 K/mm3 (0.9-3.2); Lymphocytes Percent Auto 27.6 % (18.3-44.2); Mean Corpuscular Volume 83.7 fl (80-100); Mean Platelet Volume 9.5 fl (7.4-10.4); Monocytes Absolute Auto 0.8 K/mm3 (0.1-0.6); Monocytes Percent Auto 12.7 % (2.6-8.5); Neutrophils Absolute Auto 3.8 K/mm3 (1.3-6.7); Neutrophils Percent Auto 58.4 % (45.5-73.1); Platelet Count Result 421 k/mm3 (150-375); Red Blood Count 4.12 M/mm3 (4.6-6.20); Red Cell Distribution Width 14.6 % (11.5-14.5); White Blood Count 6.5 K/mm3 (4.5-10.0)
[2025-02-15 12:22] LABS: Vitamin D 25 Hydroxy 65.7 ng/mL
[2025-02-15 12:41] LABS: Alanine Aminotransferase 9 U/L (6-50); Alkaline Phosphatase 101 U/L (38-126); Anion Gap 9 mmol/L (4-12); Aspartate Amino Transferase 22 U/L (17-59); Bilirubin,Total 0.4 mg/dL (0.2-1.3); Blood Urea Nitrogen 14 mg/dL (9-20); Calcium 9.4 mg/dL (8.4-10.2); Carbon Dioxide 23 mmol/L (22-30); Chloride 102 mmol/L (98-107); Estimated Glomerular Filt Rate > 60; Glucose 99 mg/dL (65-110); Potassium 4.6 mmol/L (3.4-5.0); Sodium 134 mmol/L (137-145); Total Protein 7.4 g/dL (6.3-8.2)
[2025-02-16 15:35] LABS: Iron 49 ug/dL (49-181)
[2025-02-16 15:44] LABS: Percent Iron Saturation 12 % (20-50)
== END 2025-02-15 10:46 | disposition home or self-care (01) ==
PROVIDERS: PCP Family Medicine; Visit Provider Family Medicine
DX: D50.9 Iron deficiency anemia, unspecified (principal); R59.0 Localized enlarged lymph nodes; I10 Essential (primary) hypertension; R53.83 Other fatigue
CPT/HCPCS: 36415; 76536; 80053; 82306; 82728; 83540; 83550; 84443; 85025

== ENCOUNTER 2025-03-17 09:50 | Outpatient (CLI) | payer MEDICARE, MEDICAID, SELFPAY ==
--- NOTE | ~2025-03-17 | US_ITS ---
EXAMINATION: US biopsy left-sided neck mass DATE: 03/17/2025 11:18 INDICATION: Palpable abnormality along the posterior lateral border of the left sternocleidomastoid m uscle TECHNIQUE: After informed consent was obtained the patient was taken to the ultrasound suite and placed in the s upine position on the ultrasound table. The patient's head was elevated at 45 degrees, as he was unable to lay completely supine. Limited ultrasound was performed demonstrating a complex solid vascular mass measuring 34.5 x 19.5 x 22.3 mm, possibly an enlarged, morphologically suspicious lymph node. The skin overlying the solid vascular mass was prepped and draped in standard sterile fashion. Anest hetic was administered with 1% lidocaine subcutaneously. A 17-gauge introducer was advanced directly into this mass and the needle removed. An 18 gauge core biopsy device was then used to obtain 5 separate core biopsy specimens under continu ous sonographic guidance. A single specimen was placed into RPMI, with remainder in formalin. All devices were then removed. Postbiopsy imaging was without active hemorrhage. A sterile dressing was applied. FINDINGS: Pathologically enlarged, morphologically suspicious (likely) level 5B cervical lymph node, adjacent t o the posterior border of the sternocleidomastoid muscle, suitable for biopsy IMPRESSION: Technically successful ultrasound-guided core biopsy of a morphologically suspicious pathologically e nlarged level 5B cervical lymph node, as detailed above. Pathology pending. Reviewed, dictated and finalized at location A. IMPRESSION: Technically successful ultrasound-guided core biopsy of a morphologically suspi cious pathologically enlarged level 5B cervical lymph node, as detailed above. Pathology pending.
--- OUTSIDE RECORDS SUMMARY | 2025-03-17 09:56 | XMS_ITS | Clinical Summary ---
Author Organization [facility] Address [facility] [place] [address] Care Team Providers Care Director Clinical Research Name Role Phone Kevin Brooks MD Primary Care Provider [phone] Hari Foster MD Unavailable Navjot Rojas MD Unavailable Unavailable Sophia Clay NP Unavailable [phone] Jill Boone MD Unavailable Allergies Active Allergy [...] 01/07/2020 Active Glucosamine 500 MG Cap Active XARELTO 2.5 MG tablet TAKE ONE TABLET BY MOUTH TWICE A DAY 180 tablet 05/17/2022 Active cilostazol (PLETAL) 50 MG tablet Take 1 tablet (50 mg total) by mouth 2 (two) times daily. 60 tablet 11 05/15/2024 Active losartan (COZAAR) 50 MG tablet Take 1 tablet (50 mg total) by mouth daily. 30 tablet 11 11/16/2024 Active metoprolol succinate ER (TOPROL-XL) 25 MG 24 hr tablet Take 1 tablet (25 mg total) by mouth daily. 30 tablet 11 11/19/2024 Active Active Problems Problem Noted Date Diagnosed Date Atherosclerosis of coronary artery of [place] heart with stable angina pectoris 05/11/2020 History of coronary artery stent placement 05/11 Carotid artery disease without cerebral infarcti on 04/01/2018 PAD (peripheral artery disease) 02/11/2018 Essential hypertension 02/11/2018 Hyperlipidemia, unspecified hyperlipidemia type 02/11/2018 Tobacco smoke exposure 02/11/2018 Immunizations Immunization Administration Dates Next Due Influenza (Generic) 07/02/2012 [...] Sign Reading Time Taken Comments Blood Pressure 138/80 11/16/2024 3:10 PM CDT Pulse 120 11/16/2024 3:10 PM CDT Temperature 36.1 C (97 F) 05/05/2020 7:52 AM CDT Respiratory Rate 16 11/16/2024 3:10 PM CDT Oxygen Saturation 97% 11/16/2024 3:10 PM CDT Inhaled Oxygen Concentration - - Weight 66.7 kg (147 lb) 11/16/2024 3:10 PM CDT Height 177.8 cm (5' 10) 11/16/2024 3:10 PM CDT Body Mass Index 21.09 11/16/2024 3:10 PM CDT Plan of Treatment Upcoming Encounters Date Type Department Care Team (Late st Contact Info) Description 05/19/2025 8:[address] [facility] [place] [address] Jill Boone MD [address] [place], [place] [phone] 05/26/2025 8:30 AM CDT Office Visit [facility] [address] [place] [phone] Jill Boone MD [address] [place], [place] [id number] Health Maintenance Due Date Last Done Comments [...] 2024 05/17/2022, 05/30/2021, 11/09/2020, Additional history exists Pneumococcal Vaccine: 50+ Years Completed 10/18/2015, 06/11/2014, 04/24/2011 Meningococcal B Vaccine Aged Out No l onger eligible based on patient's age to complete this topic Meningococcal Vaccine Aged Out No viki fred eligible based on patient's age to complete this topic RSV Immunizations Under 20 Months Aged Out No longer eligible based on patient's age to complete this topic Medical Devices Implanted Type Area Lecturer Of Portuguese Device Identifier Shelf Expiration Date Model / Serial / Lot Cv-Osiro Aly Stent-Lcx D [id number]/10/20 20 Implanted:Qty: 1 on 05/05/2020 by Navjot Rojas MD Stent Coronary LCX BIOT[employer]IK 05/13/2021 [id number] / / [id number] Description:LCX distal: Biot ronik Osiro 2.25mm x 30mm Cv-Osior Aly Stent-Lcx M 2.5x22- 0 Implanted:Qty: 1 on 05/05/2020 by Navjot Rojas MD Stent Coronary LCX BIOTRONIK 04/19/2021 [id number] / / [id number] Description:LCx mid: Biotron ik Osiro 2.5mm x 22mm Protege [id number] 0cm - [id number] Implanted:05/01 by Navjot Rojas MD at [facility] (Quantity not on file) Leg [employer] 08/06/2019 [id number] [id number] / / [id number] Procedures Procedure Name Priority Date/Time Associated Diagnosis [...] 11:10 AM 05/01/2018 6:58 PM Care Teams Director Clinical Research Relationship Specialty Start Date End Date Kevin Brooks MD [address] [place] [address] PCP - General FAMILY PRACTICE 01/15/18 Hari Foster MD [address] [place] [address] Vascular/Product Delivery Specialist INTERNAL MEDICINE 01/15/18 Navojt Rojas MD [address] [place] [address] Consulting Physician INTERVENTIONAL CARDIOLOGY 04/07/20 Sophia Clay NP [address] [facility] [address] [place] [address] Nurse Practitioner Nurse Practitioner Family 04/07/20 Jill Boone MD [address] [place] [address] Consulting Physician CARDIOVASCULAR DISEASE 03/01/23
--- NOTE | 2025-03-17 11:15 | S_PTH ---
PATIENT: Albert Merino LOC: [facility] #:[id number] AGE/SX: 75/M ROOM: RE03/17/[address]: Kevin Brooks MD : 1950 BED: DIS: 03/17/2025 SPEC #: [id number] RECD: 03/17/25 11:23 STATUS: JIN MARMOLEJO #: [id number] VALENTÍN: 03/17/25 11:[address]: Kevin Brooks DEPT: [facility] Surgical RECD BY: Cuca Jeffrey Tissues: A - Lymph Node Biopsy Procedures: P63 Jenkins Keratin Unstained Slides Hematoxylin and Eosin Stain Gross and Microscopic Level 4 Flow Cytometry P16
== END 2025-03-17 09:51 | disposition home or self-care (01) ==
PROVIDERS: PCP Family Medicine; Visit Provider Family Medicine
DX: R59.0 Localized enlarged lymph nodes (principal)
CPT/HCPCS: 38505; 76942; 88184; 88305; 88342

== ENCOUNTER 2025-05-21 01:28 | Day surgery (SDC) | payer MEDICARE, MEDICAID, SELFPAY ==
[2025-05-10 11:13] VITALS: BMI 22.4
[2025-05-21] VITALS (13 sets, daily range): BP systolic 150–214; BP diastolic 77–106; PULSE 56–90; RESP 15–22; TEMP 36.2; O2SAT 100
[2025-05-21] MEDS: LACTATED RINGERS 1,000 ML 150 ML IV CONT (13:20)
--- NOTE | 2025-05-21 13:25 | WPDANESEPPF ---
Anes - Initial Pre Proc Eval Procedure: Operation Date: 05/21/25 13:30 Proposed Procedures p Esophagogastroduodenoscopy - Angel Pena MD Date/Time: 05/21/25 13:25 Surgeon: Angel Pena MD Pre Op Diagnosis: Dysphagia, unspecified Patient Data Age: 75 Gender: M Height: 1.7 m Weight: 62.1 kg Last Vital Signs Temp 36.2 C L 05/21/25 12:46 Pulse 56 L 05/21/25 12:46 Resp 18 05/21/25 12:46 BP 164/84 H 05/21/25 12:46 Pulse Ox 100 05/21/25 12:46 O2 Del Method Room Air 05/21/25 12:46 Allergies Allergy/AdvReac Type Severity Reaction Status Date / Time No Known Allergies Allergy Verified 05/21/25 12:44 Home Medications ?Medication ?Instructions ?Recorded ?Confirmed ?Type aspirin 81 mg tablet 81 mg PO DAILY 03/31/25 05/21/25 History cilostazol 50 mg tablet 50 mg PO BID 03/31/25 05/21/25 History cyanocobalamin (vitamin B-12) 2,500 mcg PO DAILY 03/31/25 05/21/25 History 2,500 mcg tablet famotidine 20 mg tablet 20 mg PO QHS #14 tabs 03/31/25 05/21/25 Rx finasteride 5 mg tablet 5 mg PO DAILY 03/31/25 05/21/25 History losartan 100 mg tablet 100 mg PO DAILY 03/31/25 05/21/25 History metoprolol succinate 25 mg 25 mg PO DAILY 03/31/25 05/21/25 History tablet,extended release 24 hr omeprazole 40 mg capsule,delayed 40 mg PO DAILY 03/31/25 05/21/25 History release omeprazole 40 mg capsule,delayed 40 mg PO DAILY 03/31/25 05/21/25 History release rivaroxaban 2.5 mg tablet (Xarelto) 2.5 mg PO BID 03/31/25 05/21/25 History Patient hx anesthesia problems: none Family hx anesthesia problems: none Results Review: All pre-operative results and documents have been reviewed as part of the pre-operative evaluation. [facility], LAT[facility] Past Medical History Medical History Heart attack Arthritis Anxiety Asthma Surgical History Surgical History (Updated 05/21/25 @ 13:28 by Prosper Lockhart MD) H/O exploratory laparotomy Family History Family History Other Alcoholism Liver cancer Social History Social History Smoking status: Former smoker Tobacco type: cigarettes Alcohol intake: never Substance use: never Substance use type: does not use Living arrangements: alone Spiritual care concerns: No Anes - Eval Final PreProcedure Day of Procedure 05/21/25 13:25 Patient weight: normal Heart: regular rate and rhythm Lungs: clear to auscultation Airway: Mallampati scale class II Neurological: alert and oriented Last oral intake: >/= 8 hours ASA classification: III Emergent: no Anesthetic plan: proceed Anesthesia type and monitoring: general GIVS and standard monitoring Results Review: All pre-operative results and documents have been reviewed as part of the pre-operative evaluation. Informed Consent: The patient's anesthetic plan and its attendant risks and benefits were discussed with the patient/family/POA. Questions were solicited and answers provided to the satisfaction of the patient/family/POA.
--- NOTE | 2025-05-21 13:37 | PM.HPGS ---
History of Present Illness History of Present Illness Consent: Risks, benefits, and alternatives have been discussed and questions answered. Patient agrees to proceed with procedure. Chief complaint: Dysphagia, unspecified Narrative: Albert Merino is a 75 year old male here for EGD, recent large LN left neck. bx showed SCC, he has already seen oncologist and had radiation therapy at another hospital, CT scan at another institution revealed possible esophageal mass. Review of Systems Review of Systems: All systems reviewed & are unremarkable except as noted in HPI and below PMFSH Past Medical History Medical History (Updated 05/21/25 @ 13:38 by Angel Pena MD) Squamous cell carcinoma of head and neck Heart attack Arthritis Anxiety Asthma Surgical History Surgical History (Updated 05/21/25 @ 13:28 by Prosper Lockhart MD) H/O exploratory laparotomy Family History Family History Other Alcoholism Liver cancer Social History Social History Smoking status: Former smoker Tobacco type: cigarettes Alcohol intake: never Substance use: never Substance use type: does not use Living arrangements: alone Spiritual care concerns: No Meds Home Medications and Allergies Home Medications ?Medication ?Instructions ?Recorded ?Confirmed ?Type aspirin 81 mg tablet 81 mg PO DAILY 03/31/25 05/21/25 History cilostazol 50 mg tablet 50 mg PO BID 03/31/25 05/21/25 History cyanocobalamin (vitamin B-12) 2,500 mcg PO DAILY 03/31/25 05/21/25 History 2,500 mcg tablet famotidine 20 mg tablet 20 mg PO QHS #14 tabs 03/31/25 05/21/25 Rx finasteride 5 mg tablet 5 mg PO DAILY 03/31/25 05/21/25 History losartan 100 mg tablet 100 mg PO DAILY 03/31/25 05/21/25 History metoprolol succinate 25 mg 25 mg PO DAILY 03/31/25 05/21/25 History tablet,extended release 24 hr omeprazole 40 mg capsule,delayed 40 mg PO DAILY 03/31/25 05/21/25 History release omeprazole 40 mg capsule,delayed 40 mg PO DAILY 03/31/25 05/21/25 History release rivaroxaban 2.5 mg tablet (Xarelto) 2.5 mg PO BID 03/31/25 05/21/25 History Allergies Allergy/AdvReac Type Severity Reaction Status Date / Time No Known Allergies Allergy Verified 05/21/25 12:44 Vital Signs Vital Signs - 24 hr 05/21/25 12:46 Temperature 97.1 F L Pulse Rate 56 L Respiratory Rate 18 Blood Pressure 164/84 H Pulse Oximetry 100 Oxygen Delivery Room Air Exam Const: General: cooperative Neck: Other: LN in left neck Assessment and Plan Assessment and plan (1) Squamous cell carcinoma of head and neck: Code(s): C44.42 - Squamous cell carcinoma of skin of scalp and neck Status: Acute Assessment and Plan: continue care by oncologist (2) Dysphagia: Code(s): R13.10 - Dysphagia, unspecified Status: Acute Assessment and Plan: egd to assess if mass in esophagus
--- NOTE | 2025-05-21 13:47 | S_PTH ---
PATIENT: Albert Merino LOC: [facility]#:[id number] AGE/SX: 75/M ROOM: RE05/21/[address]: Angel Pena MD : 1950 BED: DIS: 05/21/2025 SPEC #: [id number] RECD: 05/21/25 14:13 STATUS: JIN MARMOLEJO #: [id number] VALENTÍN: 05/21/25 13:[address]: Angel Pena DEPT: [facility] Surgical RECD BY: Cuca Jeffrey ENTERED: 05/21/25 14:13 SP TYPE: Surgical OTHR DR: Kevin Brooks MD Tissues: A - Esophageal Biopsy Procedures: Hematoxylin and Eosin Stain Gross and Microscopic Level 4 P16
--- NOTE | 2025-05-21 14:22 | SUR.PHASEII ---
Patient hypertensive in recovery. BP 200/100. Patient takes Metoprolol and Losartan at home daily. He did not take either medication this morning. BARBARA Fernández notified. At 1422 3mg Metoprolol Tartrate given IVP by Pradeep Roberts CRNA. Will monitor.
[2025-05-21] MEDS: METOPROLOL TARTRATE INJ 5 MG/5 ML VIAL 2 MG IV PUSH (14:34)
--- NOTE | 2025-05-21 14:54 | SUR.PHASEII ---
Patient still hypertensive following Metoprolol. At 1443 administered Hydralazine 5mg IVP per verbal orders from Pradeep Rodriguez CRNA.
--- NOTE | 2025-05-21 15:10 | SUR.PHASEII ---
Patient still hypertensive following Metoprolol and Hydralazine IVP x1. Spoke with Dr. Knutson. Received verbal orders for Labetolol 5mg IVP x1.
--- NOTE | 2025-05-21 15:25 | SUR.PHASEII ---
Patient BP 188/89. Spoke with Dr. Knutson and received orders to discharge patient.
== END 2025-05-21 15:31 | disposition home or self-care (01) ==
PROVIDERS: PCP Family Medicine; Referring Provider Otolaryngology; Visit Provider Internal Medicine Gastroenterology
PROC: 0DJ08ZZ Inspection of Upper Intestinal Tract, Via Natural or Artificial Opening Endoscopic (ICD-10-PCS; CPT 43239; principal; 2025-05-21 13:30)
DX: C15.3 Malignant neoplasm of upper third of esophagus (principal); K44.9 Diaphragmatic hernia without obstruction or gangrene; J45.909 Unspecified asthma, uncomplicated; F41.9 Anxiety disorder, unspecified; I25.2 Old myocardial infarction; M19.90 Unspecified osteoarthritis, unspecified site; Z79.82 Long term (current) use of aspirin; Z79.01 Long term (current) use of anticoagulants; Z98.890 Other specified postprocedural states; Z87.891 Personal history of nicotine dependence; Z85.828 Personal history of other malignant neoplasm of skin; Z80.0 Family history of malignant neoplasm of digestive organs
CPT/HCPCS: 43239; 88305; 88342; J0360; J0616; J2003; J2704; J7120

== ENCOUNTER 2025-06-04 10:27 | Outpatient (CLI) | payer MEDICARE, MEDICAID, SELFPAY ==
--- NOTE | ~2025-06-04 | XR_ITS ---
EXAMINATION: XR chest 2V, 06/04/2025 10:53 CDT HISTORY: acute cough X COUPLE WEEKS COMPARISON: No comparisons available. Technique: 2 views obtained. Findings: The lungs are clear, no effusion. No pneumothorax. Heart is normal size. Mediastinal and hilar contours are within normal limits. Bony thorax no acute abnormality. Impression: No acute cardiopulmonary abnormality. Reviewed, dictated and finalized at location P. Impression: No acute cardiopulmonary abnormality.
== END 2025-06-04 10:28 | disposition home or self-care (01) ==
PROVIDERS: PCP Family Medicine; Visit Provider Family Medicine
DX: R05.1 Acute cough (principal)
CPT/HCPCS: 71046

== ENCOUNTER 2025-06-17 13:27 | Outpatient (CLI) | payer MEDICARE, MEDICAID, SELFPAY ==
--- NOTE | ~2025-06-17 | PE_ITS ---
EXAMINATION: PET skull to mid thigh DATE: 06/18/2025 07:57 INDICATION: Hypopharyngeal cancer. TECHNIQUE: Blood glucose level was 94 mg/dL. 10.347 mCi of 18-fluorodeoxyglucose (18-FDG) was administered i.v. Low dose computed tomography (CT) images were acquired from the base of the brain to the proximal thighs for attenuation correction and anatomic localization. Automated exposure control was employed. Dose-length product (DLP) was 636 mGy-cm. Positron emission tomography (PET) images were acquired in the same distribution. COMPARISON: Chest CT 06/05/2023 FINDINGS: Head/neck: There are likely changes of ocular lens replacement surgeries. There is a 3.0 x 1.9 cm mass in the cervical esophagus with maximum SUV of 23.3. There is a 9 mm mass with maximum SUV of 19.4 in the hypopharynx on the left. There is left mid and low internal jugular chain lymphadenopathy and left spinal accessory chain lymphadenopathy with increased activity. For example, a left mid internal jugular chain node measures 3.9 x 2.5 cm with maximum SUV of 24.2. There is a normal-sized right mid internal jugular chain node with increased activity. There is bilateral supraclavicular lymphadenopathy with increased activity. Chest: The lungs demonstrate mild atelectasis. Calcified left lung nodules are consistent with old granulomatous disease. There is a 5 mm nodule in left lung lower lobe with increased activity. There is an 8 mm nodule in left lower lobe with increased activity. There is mild scarring at the lung apices. No pleural effusion. The heart size is normal. There are coronary artery calcifications. No pericardial effusion. There is mediastinal lymphadenopathy with increased activity. There are normal-sized bilateral hilar lymph nodes with increased activity. Abdomen/pelvis/proximal thighs: The liver is normal. There are changes of cholecystectomy. Calcifications in the spleen are consistent with old granulomatous disease. The pancreas, adrenal glands, and kidneys are normal. The bladder is distended and demonstrates diverticula. The prostate is mildly enla rged. There is diverticulosis of the colon without evidence of diverticulitis. The appendix is normal. There are no dilated loops of bowel. There are no pathologically enlarged lymph nodes. There is no free intraperitoneal fluid. There is no osseous malignancy. IMPRESSION: 1. Mass in the cervical esophagus with increased activity, consistent with primary malignancy. 2. Mass in the left hypopharynx with increased activity suspicious for primary malignancy. 3. Neck and chest lymphadenopathy and left lung nodules with increased activity, consistent with metastatic disease. Reviewed, dictated and finalized at location E. IMPRESSION: 1. Mass in the cervical esophagus with increased activity, consistent with prim ana malignancy. 2. Mass in the left hypopharynx with increased activity suspicious for primary malignancy. 3. Neck and chest lymphadenopathy and left lung nodules with increased activity , consistent with metastatic disease.
--- OUTSIDE RECORDS SUMMARY | 2025-06-17 14:23 | XMS_ITS | Clinical Summary ---
Author Organization [facility] Address [address] [place] [address] Care Team Providers Care Automotive Heavy Mechanic Name Role Phone Kevin Brooks MD Primary Care Provider [phone] Source Comments [facility],non-owned Affiliates and Associated Physician Practices is amultiple site organization consisting of ambulatory clinics and hospital sitesin [place], [place], [place] and [place]. This disclosure is being madepursuant to the Care Everywhere program and may not contain all information available regarding this patient. Last updated 18.[facility] Allergies Active Allergy Reactions Criticality Noted Date Comments Levofloxacin Myalgias 01/17/2018 Seasonal Cough 02/11/2018 Medications * Be aware that medications may not be up to date on this document. Alwaysverify current medications with the patient. cilostazol (Pletal) 50 MG tablet Take 1 (one) tablet by mouth 2 times daily 5 Active cyanocobalamin 100 MCG tablet Take 0.5 (one-half) tablet by mouth once daily Active famotidine (Pepcid) 20 MG tablet Take 1 (one) tablet by mouth once daily 5 Active finasteride (Proscar) 5 MG tablet Take 1 (one) tablet by mouth once daily Active losartan (Cozaar) 50 MG tablet Take 1 (one) tablet by mouth once daily 5 Active metoprolol succinate XL 24hr (Toprol XL) 25 MG tablet Take 1 (one) tablet by mouth once daily 5 Active omeprazole (PriLOSEC) 40 MG capsule Take 1 (one) capsule by mouth daily before breakfast 5 Active Xarelto 2.5 MG TABS tablet Take 1 (one) tablet by mouth 2 times daily 5 Active aspirin (Aspirin) 81 MG chew tablet Take 1 (one) tablet by mouth once daily (chew and swallow) Active multivitamin daily tablet Take 1 (one) tablet by mouth daily with food Active acetaminophen (Tylenol) 325 MG tablet Take 2 (two) tablets by mouth every 6 hours as needed for Fever or Pain Maximum allowable Acetaminophen amount = 4 Grams (4000 mg) / 24 hours. 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 Encounters Date Type Department Care Team Description 06/10/2025 Orders Only [facility] - ENT [address] [place] [address] [phone] Vladimir Greer MD Hypopharyngeal cancer (HCC) ; 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 (HCC); Cancer of upper third of esophagus (HCC) 06/08/2025 Telephone [facility] [address] [place] [phone] Vladimir Greer MD Question (Diagnosis code) 05/31/2025 Telephone [facility] [address] [place] [address] [phone] Vladimir Greer MD Question 05/27/2025 Orders Only [facility] - [facility]NT [address] [place] [address] [phone] Vladimir Greer MD Hypopharyngeal cancer (HCC) ; Dysphonia 05/10/2025 Telephone [facility] [address] [place] [phone] Vladimir Greer MD Referral 05/10/2025 Orders Only [facility] [address] [place] [phone] Vladimir Greer MD Hypopharyngeal cancer (HCC) 05/04/2025 7:31 AM CDT Anesthesia Event [facility] [address] [place] [address] Eileen Adan MD Hoyle, Joseph, MD 05/04/2025 7:05 AM CDT - 05/04/2025 9:20 AM CDT Surgery [facility] [address] [place] [phone] Vladimir Greer MD Esopagoscopy 05/04/2025 5:32 AM CDT - 05/04/2025 10:59 AM CDT Hospital Encounter [facility] [address] [place] [phone] Vladimir Greer MD Surgery General Discharge Disposition: Home or Self Care 05/04/2025 Travel 04/28/2025 Telephone [facility] [address] [place] [phone] Rolly, August Medical Clearance 04/27/2025 2:32 PM CDT - 04/27/2025 11:59 PM CDT Hospital Encounter [facility] - Outside Imaging Discharge Disposition: Home or Self Care 04/27/2025 2:32 PM CDT - 04/27/2025 11:59 PM CDT Hospital Encounter [facility] - Outside Imaging Discharge Disposition: Home or Self Care 04/27/2025 Telephone [facility] [address] [place] [phone] Vladimir Greer MD Results 04/27/2025 Telephone [facility] [address] [place] [phone] Rolly August Surgery Scheduling 04/23/2025 1:35 PM CDT - 04/23/2025 11:59 PM CDT Hospital Encounter [facility] [address] [place] [address] Orlando Garcia MD Discharge Disposition: Home or Self Care 04/23/2025 12:55 PM CDT - 04/23/2025 1:34 PM CDT Hospital Encounter [facility] [address] [place] [address] Orlando Garcia MD Discharge Disposition: Home or Self Care 04/23/2025 11:00 AM CDT Office Visit [facility] - [facility] [address] [place] [phone] Orlando Garcia MD Walker, Ronald J, MD Hypopharyngeal cancer (HCC) (Primary Dx); Dysphonia 04/23/2025 Travel 04/21/2025 Telephone [facility] [address] [place] [phone] Vladimir Greer MD Appointment 04/20/2025 Telephone [facility] [address] [place] [phone] Pascual Garza MD Referral 03/17/2025 Lab Requisition [facility] Lab [address] [place] [address] Mateusz Knutson MD Localized swelling, mass and lump, unspecified from Last 3 Months Immunizations Immunization Administration Dates Next Due INFLUENZA VACCINE 05/31/2022,,06/03/2020,08/21/2019,06/19/20 18,05/03/2017,05/03/2016,06/11/2014,07/08/2013,07/02 PNEUMOCOCCAL PPSV23 06/11/2014,04/24/2011 Pneumococcal Pcv13 Conj 10/18/2015 TDAP (7yrs+) 03/18/2013 Social History Tobacco Use Types Packs/Day Years Used Date Smoking Tobacco: Former Cigarettes Smokeless Tobacco: Never Tobacco Cessation:Counseling Given: Not Answered Comments:Stopped over 30 years Alcohol Use Standard Drinks/Week Comments Not Currently 0 (1 standard drink = 0.6 oz pur e alcohol) quit years ago AUDIT-C Answer Date Recorded Q1: How often do you have a drink containing alcohol? Never 05/04/2025 Q2: How many drinks containi ng alcohol do you have on a typical day when you are drinking? Patient does not drink Q3: How often do you have si x or more drinks on one occasion? Never 05/04/2025 Sex and Gender Information Value Date Recorded Sex Assigned at Not on file Legal Sex Male 1:32 PM CDT Gender Identity Not on file Sexual Orientation Not on file Last Filed Vital Signs Vital Sign Reading Time Taken Comments Blood Pressure 156/80 05/04/2025 10:30 AM CDT Pulse 84 05/04/2025 10:30 AM CDT Temperature 36.6 C (97.8 F) 05/04/2025 10:08 AM CDT Respiratory Rate 10 05/04/2025 10:30 AM CDT Oxygen Saturation 98% 05/04/2025 10:30 AM CDT Inhaled Oxygen Concentration - - Weight 64.4 kg (142 lb) 05/04/2025 6:04 AM CDT Height 179.1 cm (5' 10.5) 05/04/2025 6:04 AM CD T Body Mass Index 20.09 05/04/2025 6:04 AM CDT Plan of Treatment Health Maintenance Due Date Last Done Comments HEPATITIS C SCREENING 01/20/1966 ZOSTER VACCINE (1 of 2) 01/24/1967 Respiratory Syncytial Virus (RSV) Vaccine Pt: or over 60 yrs (1 - 1-dose 75+ series) 01/24/2023 DTAP/TDAP/TD VACCINES (2 - Td or Tdap) 03/18/2023 03/18/2013 DEPRESSION SCREENING 08/26/2024 MEDICARE AWV CALENDAR YEAR 2024 COVID-19 VACCINE ( - season) 2025 INFLUENZA VACCINE (#1) 2025 2, 05/05/2021, 06/03/2020, Additional history exists PNEUMOCOCCAL VACCINE 50+ Completed 016, 06/11/2014, 04/24/2011 HEPATITIS B VACCINE Aged Out No longe r eligible based on patient's age to complete this topic HIB VACCINE Aged Out No longer eligi ble based on patient's age to complete this topic HPV VACCINE Aged Out No longer eligi ble based on patient's age to complete this topic MENINGOCOCCAL (Group B) VACCINE SHARED DECISION-MAKING Aged Out No longer eligible based on patient's age to complete this topic MENINGOCOCCAL GROUPS A/C/Y/W VACCINE Aged Out No longer eligible based on patient's age to complete this topic Procedures Procedure Name Priority Date/Time Associated Diagnosis Comments PATHOLOGY TISSUE Routine 05/04/2025 8:04 AM CDT Hypopharyngeal cancer (HCC) ENDOTRACHEAL TUBE NOTE Routine 05/04/2025 7:[address] LARYNGOSCOPY,DIRCT,O P SCOPE,BIOPSY 05/04/2025 7:06 AM CDT Hypopharyngeal cancer (HCC) Special Needs 04/[address] ESOPHAGOSCOPY FLEX TRANSORAL DX 05/04/2025 7:06 AM CDT Hypopharyngeal cancer (HCC) Special Needs 04/[address] LARYNGOSCOPY,FLEX FIBER,DIAGNOSTIC Routine 04/23/2025 2:08 PM CDT Dysphonia BASIC METABOLIC PANEL (CALCIUM TOTAL) Routine 04/23/2025 2:06 PM CDT Hypopharyngeal cancer (HCC) CBC W AUTO DIFFERENTIAL Routine 04/23/2025 2:06 PM CDT Hypopharyngeal cancer (HCC) IMAGING/RADIOLOGY/XR AY RESULTS ORDER 04/01/2025 CT CHEST OUTSIDE Routine 03/25/2025 2:[address] NECK SOFT TISSUE OUTSIDE Routine 03/25/2025 2:34 PM CDT FLOW CYTOMETRY TISSUE PANEL Routine 03/17/2025 10:50 AM CDT Localized swelling, mass and lump, unspecified from Last 3 Months Results * PATHOLOGY TISSUE (05/04/2025 8:04 AM CDT) Case Report Surgical Pathology Report Case: [id number] Authorizing Provider: Vladimir Greer MD Collected: 05/04/2025 08:04 AM Ordering Location: [facility] Received: 05/04/2025 09:49 AM Pathologist: Marisol Callahan MD Specimens: A) - Esophagus, upper esophageal biopsy B) - Larynx Biopsy, left post cricoid biopsy 2:04 PM CDT [facility] Final Diagnosis Upper esophagus, biopsy (A/FSA): - Invasive squamous cell carcinoma, moderately differentiated Cricoid, left post, biopsy (B): - Invasive squamous cell carcinoma, moderately differentiated 2:04 PM CDT [facility] at 1404 CDT Microscopic Description and Comment Microscopic examination substantiates the diagnosis. 2:04 PM CDT [facility] Clinical History The patient is a 75-year-old man with voice changes and a left neck mass. He underwent biopsy of the left neck mass which was inconclusive. He presents now for biopsy site of what appears to be a primary cancer in his upper esophagus/hypopharynx . 2:04 PM CDT [facility] Intraoperative Consultation A.) Upper esophageal bio + are two pink-sanchez tissue fragments, 0.4 x 0.3 x 0.2 cm and 0.7 x 0.5 x 0.2 cm. Submitted in toto as FSA1. Intraoperative diagnosis: FSA1 Upper esophageal biopsy: - Squamous cell carcinoma by Annette Craig MD 2:04 PM CDT [facility] Gross Description The requisition and specimen(s) are identified with the patient's name Cj Merino. Received in formalin from intraoperative consultation, specimen A, consists of a frozen section remnant of FSA1 that is consistent with the intraoperative note and is submitted in cassette A1. Received in formalin, specimen B, consists of a 0.6 x 0.4 x 0.3 cm hemorrhagic pink-sanchez tissue fragment with no clear resection margin. The specimen is submitted in toto in cassette B1./BAJ 2:04 PM CDT [facility] Pathologist Location at [facility] 5 2:04 PM CDT [facility] Disclaimer The performance characteristics of all immunohistochemical and indirect immunofluorescence stains (if any) cited in this report were determined by the Histopathology Laboratory of [facility]. Some of these tests were developed by our own laboratory and have not been cleared or approved by the US Food and Drug Administration. The FDA does not require this test to go through premarket FDA review. These tests are used for clinical purposes. They should not be regarded as investigational or for research. This laboratory is certified under the Clinical Laboratory Improvement Amendments (CLIA) as qualified to perform high complexity clinical laboratory testing. This case has been personally reviewed and interpreted by the attending (teaching) pathologist. 5 2:04 PM CDT [facility] Embedded Images 2:04 PM CDT [facility] Biopsy, NOS REGION OF ESOPHAGUS / Unknown 05/04/2025 8:04 AM CDT 05/04/2025 9:49 AM CDT Comment:Pre-op diagnosis: Hypopharyngeal cancer Biopsy, Excision LARYNX BIOPSY SPECIMEN / Unknown 05/04/2025 8:10 AM CDT 05/04/2025 9:49 AM CDT Comment:Pre-op diagnosis: Hypopharyngeal cancer Vladimir Greer MD LAB - PATHOLOGY/CYTOLOGY [facility] Final Result Performing Organization Address [facility]/State/[facility] Phone Number [facility] [address] [phone] * ETT LINE PERFORMABLE (05/04/2025 7:47 AM CDT) Narrative Lima Garzon APRN-CRNA - 05/04/2025 7:47 AM CDT Lima Garzon APRN-CRNA 05/04/2025 7:48 AM Endotracheal Tube Placement: Patient Location: OR. Procedure: intubation (57718) Procedure Section: Sedation: under general anesthesia. Indications for Airway Management: anesthesia Procedure pretreatments used? No Induction: standard IV Patient Position: sniffing Mask Ventilation: easy. Blade Type: Pramod Blade Size: 4 Laryngoscopy View: grade 1 (full cords) Intubation Adjuncts: stylet Tube: endotracheal tube Placement: oral Tube type: cuff - inflated Tube Size (MM): 7 Depth of Insertion (CM): 22 Measured From: gums Cuff volume (mL): 5 Cuff Inflated With: air Number of Attempts: 1. Placement Verified By: direct visualization, bilateral breath sounds and CO2 monitor Tube secured with: adhesive tape. Dentition unchanged? Yes Difficult Airway? No. Staff Section Anesthesia Provider: Lima Garzon HAND FLATWORK FINISHER-COMMUNICATION PROFESSOR, Performed the procedure Eileen Adan MD GENERAL ANESTHESIA ORDERABLES Final Result * CT LARYNGOSCOPY,FLEX FIBER,DIAGNOSTIC (04/23/2025 2:08 PM CDT) Narrative Vladimir Greer MD - 04/23/2025 2:08 PM CDT Vladimir Greer MD 04/23/2025 2:09 PM Procedure Note Endoscopy Type: Laryngoscopy Endoscope: 4mm flexible nasopharyngoscopy Anesthesia: topical lidocaine Procedure Details: The patient was sitting upright in a chair with the head in a slightly anterior sniffing position. The endoscope was passed through the nasal cavity with the tongue retracted anteriorly. The tip of the endoscope was positioned in the oropharynx which allowed a complete view of the base of tongue, vallecula, pyriform recesses, epiglottis, bilateral true and false vocal folds, the interarytenoid and post cricoid region, and the immediate subglottis. Findings: True vocal folds move well no obvious lesions. Some fullness in the posterior hypopharynx without discrete lesion Condition: Stable. Patient tolerated procedure well. Complications: None Vladimir Greer MD PROCEDURE/MINOR SURGICAL ORDE RABLES Final Result * (ABNORMAL) CBC W/ DIFFERENTIAL (04/23/2025 2:06 PM CDT) WBC 8.1 4.0 - 10.7 x10E9/L 04/23/2025 2:38 PM CDT [facility] RBC Count 4.22(L) 4.30 - 5.80 x10E12/L 04/23/2025 2:38 PM CDT [facility] Hemoglobin 10.9(L) 13.3 - 17.5 g/dL 04/23/2025 2:38 PM [facility] Hematocrit 34.9(L) 38.7 - 51.1 % 04/23/2025 2:38 PM [facility] MCV 82.7 80.0 - 98.0 fL 04/23/2025 2:38 PM [facility] MCH 25.8(L) 26.7 - 33.6 pg 04/23/2025 2:38 PM [facility] MCHC 31.2(L) 31.7 - 36.3 g/dL 04/23/2025 2:38 PM [facility] RDW-CV 15.8(H) 11.3 - 14.8 % 04/23/2025 2:38 PM [facility] Platelet Count 351 150 - 420 x10E9/L 04/23/2025 2:38 PM [facility] MPV 9.4 7.8 - 11.4 fL 04/23/2025 2:38 PM [facility] Neutrophil % 58.0 41.0 - 74.0 % 04/23/2025 2:38 PM [facility] Lymphocyte % 28.8 17.0 - 47.0 % 04/23/2025 2:38 PM [facility] Monocyte % 11.8(H) 3.0 - 11.0 % 04/23/2025 2:38 PM [facility] Eosinophil % 0.7 0.0 - 7.0 % 04/23/2025 2:38 PM [facility] Basophil % 0.5 0.0 - 1.6 % 04/23/2025 2:38 PM [facility] Immature Granulocytes % 0.2 0.0 - 1.0 % 04/23/2025 2:38 PM [facility] Neutrophil Absolute 4.70 1.60 - 7.50 x10E9/L 04/23/2025 2:38 PM [facility] Lymphocyte Absolute 2.34 1.00 - 4.40 x10E9/L 04/23/2025 2:38 PM [facility] Monocyte Absolute 0.96 0.15 - 1.00 x10E9/L 04/23/2025 2:38 PM [facility] Eosinophil Absolute 0.06 0.00 - 0.60 x10E9/L 04/23/2025 2:38 PM [facility] Basophil Absolute 0.04 0.00 - 0.13 x10E9/L 04/23/2025 2:38 PM [facility] Blood BLOOD SPECIMEN / Unknown Lab Venipuncture / Unknown 04/23/2025 2:06 PM CDT 04/23/2025 2:27 PM CDT us Orlando Garcia MD LAB - HEMATOLOGY ORDERABLES Tammie prabhakar Result [facility] [address] [place] [address], [facility] [phone] * (ABNORMAL) BASIC METABOLIC PANEL (CALCIUM TOTAL) (04/23/2025 2:06 PM CDT) BUN 14 7 - 26 mg/dL 04/23/2025 2:54 PM [facility] Creatinine 1.00 0.71 - 1.16 mg/dL 04/23/2025 2:54 PM [facility] Sodium 136 136 - 145 mmol/L 04/23/2025 2:54 PM [facility] Potassium 4.3 3.5 - 4.5 mmol/L 04/23/2025 2:54 PM [facility] Chloride 103 98 - 107 mmol/L 04/23/2025 2:54 PM [facility] CO2 24 22 - 29 mmol/L 04/23/2025 2:54 PM [facility] Glucose 97 70 - 99 mg/dL 04/23/2025 2:54 PM [facility] Calcium 9.0 8.4 - 10.2 mg/dL 04/23/2025 2:54 PM [facility] Anion Gap 9 6 - 16 04/23/2025 2:54 PM [facility] BUN/Creatinine Ratio 14 7 - 23 04/23/2025 2:54 PM CDT [facility] Osmolality Calculated 282 275 - 295 mOsm/kg 04/23/2025 2:54 PM CDT [facility] eGFR by CKD-EPI 78(L) >=90 mL/min/1.7 3 m2 04/23/2025 2:54 PM CDT [facility] Comment:Estimated Glomerular Filtration Rate (eGFR) calculated using the CKD-EPI Creatinine Equation (2020), per the National Kidney Foundation and [place] Society of Nephrology recommendations. Blood BLOOD SPECIMEN / Unknown Lab Venipuncture / Unknown 04/23/2025 2:06 PM CDT 04/23/2025 2:27 PM CDT us Orlando Garcia MD LAB - CHEMISTRY ORDERABLES Final Result Performing Organization Address [facility]/ZIP Co de Phone Number [facility] [address] [place] [address], [facility] [phone] * IMAGING/RADIOLOGY/XRAY RESULTS ORDER (04/01/2025) Anatomical Region Laterality Modality Other 04/01/2025 Narrative 04/01/2025 Ordered by an unspecified provider. us Scanned Document IMAGING Final Result * CT Neck Soft Tissue Outside (03/25/2025 2:34 PM CDT) Narrative [facility] - 04/27/2025 2:34 PM CDT This is a study from an outside facility that has been uploaded into PACS. us Provider [employer] IMAGING Final Result Performing Organization Address City/[facility]/ZIP Co de Phone Number [facility] * CT Chest Outside (03/25/2025 2:34 PM CDT) Narrative [facility] - 04/27/2025 2:34 PM CDT This is a study from an outside facility that has been uploaded into PACS. us Provider [employer] IMAGING Final Result Performing Organization Address City/[facility]/ZIP Co de Phone Number [facility] * FLOW CYTOMETRY TISSUE PANEL (03/17/2025 10:50 AM CDT) Case Report Flow Cytometry Case: [id number] Authorizing Provider: Eamon Mateusz Collected: 03/17/2025 10:50 AM MD Trevon Ordering Location: [facility] - Received: 03/17/2025 01:36 PM Pathology Lab Pathologist: Kim Reyes MD Specimen: Lymph Node, NECK 03/17/2025 3:33 PM CDT [facility] Final Diagnosis Lymph node, left jugular, flow cytometric immunophenotyping : - Quantity of hematopoietic cells insufficient for analysis 03/17/2025 3:33 PM CDT [facility] at 1533 CDT Flow Cytometry Interpretation A cytospin prepared from the flow cytometry specimen has been reviewed for type disk quality control supervisor purposes. 03/17/2025 3:33 PM CDT [facility] Flow Cytometry Results Too few hematopoietic cells for flow cytometric analysis. 03/17/2025 3:33 PM CDT [facility] Reason for test Localized swelling, mass and lump, unspecified 03/17/2025 3:33 PM CDT [facility] Client Specimen ID # [id number] 03/17/2025 3:33 PM CDT [facility] Pathologist Location at [facility] 03/17/2025 3:33 PM CDT [facility] Disclaimer Test performed at [facility], [address] [place] [address], [id number]. *The established laboratory minimum viability is 70%. Values below the minimum may result in the failure to find an abnormal population of cells. This test was developed and its performance characteristics determined by the Flow Cytometry Laboratory. It has not been cleared by the [place] Food and Drug Administration (FDA). The FDA has determined that such clearance or approval is not necessary. This test is used for clinical purposes. It should not be regarded as investigational or for research. This laboratory is regulated under the Clinical Laboratory Improvement Amendments of 1998 (CLIA) as a qualified to perform high complexity clinical testing. 03/17/2025 3:33 PM CDT [facility] Embedded Images 3:33 PM CDT [facility] Pathology/Cytolo gy ENTIRE LYMPH NODE / Unknown 03/17/2025 10:50 AM CDT 03/17/2025 1:36 PM CDT Mateusz Knutson MD LAB - PATHOLOGY/CYT OLOGY ORDERABLES Final Result [facility] [address] [place] [address], [facility] [phone] from Last 3 Months Insurance [facility] MEDICA[facility] - [place] SELF PAY NO INSURANCE Member Subscriber Plan / Payer (Ef fective for All Dates) Name:PattvannaCj alvarado Member ID:Not on file Relation to Subscriber:Not on file Name:[id number] Subscriber ID:Not on file (Home) Address: [address] [place] [address] Payer ID:Not on file Group ID:Not on file Type:Self Pay Address: [place], [place] [employer] MED[employer]ARE ADV HMO & PPO Care Teams Automotive Heavy Mechanic Relationship Specialty Start Date End Date Kevin Brooks MD [address] [place] [address] PCP - General Family Medicine 04/19/25
--- OUTSIDE RECORDS SUMMARY | 2025-06-17 14:23 | XMS_ITS | Encounter Summary ---
Author Organization [facility] Address [address] [place] [address] Care Team Providers Care Corporate Counselor Name Role Phone Kevin Brooks MD Primary Care Provider [phone] Encounter Details Date Type Department Care Team (Late st Contact Info) Description 03/17/2025 Lab Requisition [facility] - Pathology Lab [address] [place] [phone] Mateusz Knutson MD [address] [place] [phone] Localized swelling, mass and lump, unspecified Social History Tobacco Use Types Packs/Day Years Used Date Smoking Tobacco: Never Assessed Sex and Gender Information Value Date Recorded Sex Assigned at Not on file Legal Sex Male 1:32 PM CDT Gender Identity Not on file Sexual Orientation Not on file documented as of this encounter Plan of Treatment Not on file documented as of this encounter Procedures Procedure Name Priority Date/Time Associated Diagnosis Comments FLOW CYTOMETRY TISSUE PANEL Routine 03/17/2025 10:50 AM CDT Localized swelling, mass and lump, unspecified documented in this encounter Results * FLOW CYTOMETRY TISSUE PANEL (03/17/2025 10:50 AM CDT) Case Report Flow Cytometry Case: [id number] Authorizing Provider: Mateusz Knutson Collected: 03/17/2025 10:50 AM MD Trevon Ordering Location: [facility] - Received: 03/17/2025 01:36 PM Pathology Lab Pathologist: Kim Reyes MD Specimen: Lymph Node, NECK 03/17/2025 3:33 PM T [facility] Final Diagnosis Lymph node, left jugular, flow cytometric immunophenotyping : - Quantity of hematopoietic cells insufficient for analysis 03/17/2025 3:33 PM CDT [facility] at 1533 CDT Flow Cytometry Interpretation A cytospin prepared from the flow cytometry specimen has been reviewed for quality assurance supervisor trim purposes. 03/17/2025 3:33 PM T [facility] Flow Cytometry Results Too few hematopoietic cells for flow cytometric analysis. 03/17/2025 3:33 PM T [facility] Reason for test Localized swelling, mass and lump, unspecified 03/17/2025 3:33 PM CDT [facility] Client Specimen ID # [id number] 03/17/2025 3:33 PM T [facility] Pathologist Location at [facility] 03/17/2025 3:33 PM T [facility] Disclaimer Test performed at [facility], [address] [place] [address], [address]. *The established laboratory minimum viability is 70%. [...] high complexity clinical testing. 03/17/2025 3:33 PM T [facility] Embedded Images 3:33 PM T [facility] Pathology/Cytolo gy ENTIRE LYMPH NODE / Unknown 03/17/2025 10:50 AM CDT 03/17/2025 1:36 PM CDT Mateusz Knutson MD LAB - PATHOLOGY/CYT OLOGY ORDERABLES Final Result [facility] [address] [place] [place] [address], [facility] [phone] documented in this encounter Visit Diagnoses Diagnosis Localized swelling, mass and lump, unspecified documented in this encounter Care Teams Corporate Counselor Relationship Specialty Start Date End Date Kevin Brooks MD [address] [place] [phone] PCP - General Family Medicine 04/19/25 documented as of this encounter
== END 2025-06-17 13:28 | disposition home or self-care (01) ==
LOC: ANHIMG 13:30
PROVIDERS: PCP Family Medicine
DX: C13.9 Malignant neoplasm of hypopharynx, unspecified (principal); R49.0 Dysphonia
CPT/HCPCS: 78815; A9552

== ENCOUNTER 2025-07-15 08:53 | Outpatient (CLI) | payer MEDICARE, MEDICAID, SELFPAY ==
--- NOTE | 2025-07-15 | CONSULT_PTH ---
PATIENT: Albert Merino LOC: [facility]#:[id number] AGE/SX: 75/M ROOM: RE07/15/[address]: Sanjuanita Pickett MD : 1950 BED: DIS: 07/15/2025 SPEC #: [id number] RECD: 07/15/25 11:11 STATUS: JIN REQ #: [id number] VALENTÍN: 07/15/25 00:[address]: Sanjuanita Pickett DEPT: [facility] Consult RECD BY: Vicki Greene MLT ENTERED: 07/15/25 11:12 SP TYPE: Consult OTHR DR: Kevin Brooks MD Tissues: A - Peripheral Smear Procedures: Hematology Consult
--- OUTSIDE RECORDS SUMMARY | 2025-07-15 10:06 | XMS_ITS | Encounter Summary ---
Author Organization [facility] Address [address] [place] [address] Care Team Providers Care Weaver Tire Cord Name Role Phone Kevin Brooks MD Primary Care Provider [phone] Encounter Details Date Type Department Care Team (Late st Contact Info) Description 03/17/2025 Lab Requisition [facility] Lab [address] [place] [phone] Mateusz Knutson MD [address] [place] [address] Localized swelling, mass and lump, unspecified [...] AM CDT) Case Report Flow Cytometry Case: [id number] Authorizing Provider: Mateusz Knutson Collected: 03/17/2025 10:50 AM MD Trevon Ordering Location: [facility] - Received: 03/17/2025 01:36 PM Pathology Lab Pathologist: Kim Reyes MD Specimen: Lymph Node, NECK 03/17/2025 3:33 PM T [facility] Final Diagnosis Lymph node, left jugular, flow cytometric immunophenotyping : - Quantity of hematopoietic cells insufficient for analysis 03/17/2025 3:33 PM CDT [facility] at 1533 CDT Flow Cytometry Interpretation A cytospin prepared from the flow cytometry specimen has been reviewed for advanced quality engineer purposes. 03/17/2025 3:33 PM T [facility] Flow Cytometry Results Too few hematopoietic cells for flow cytometric analysis. 03/17/2025 3:33 PM T [facility] Reason for test Localized swelling, mass and lump, unspecified 03/17/2025 3:33 PM CDT [facility] Client Specimen ID # [id number] 03/17/2025 3:33 PM T [facility] PATH[facility] LAB Pathologist Location at [facility] 03/17/2025 3:33 PM T U PATHOLOGY LAB Disclaimer Test performed at [facility], [address] [place] [address], [address]. *The established laboratory minimum viability is 70%. [...] complexity clinical testing. 03/17/2025 3:33 PM T [facility] Embedded Images 3:33 PM T [facility] Pathology/Cytolo gy ENTIRE LYMPH NODE / Unknown 03/17/2025 10:50 AM CDT 03/17/2025 1:36 PM CDT Mateusz Knutson MD LAB - PATHOLOGY/CYT OLOGY ORDERABLES Final Result [facility] [address] [place] [address], [facility] [phone] documented in this encounter Visit Diagnoses Diagnosis Localized swelling, mass and lump, unspecified documented in this encounter Care Teams [employer] Relationship Specialty Start Date End Date Kevin Brooks MD [address] [place] [phone] PCP - General Family Medicine 04/19/25 documented as of this encounter
--- OUTSIDE RECORDS SUMMARY | 2025-07-15 10:06 | XMS_ITS | Clinical Summary ---
Author Organization [facility] [employer] Address [address] [place] [place] [address] Care Team Providers Care Extruder Tender Name Role Phone Kevin Brooks MD Primary Care Provider [phone] Source Comments [facility] [employer],non-owned Affiliates and Associated Physician Practices is amultiple site organization consisting of ambulatory clinics and hospital sitesin [place], [place], [place] and [place]. This disclosure is being madepursuant to the Care Everywhere program and may not contain all information available regarding this patient. Last updated 18.[facility] [employer] Allergies Active Allergy Reactions Criticality Noted Date [...] Encounters Date Type Department Care Team Description 06/28/2025 2:37 PM KENO WRITER / RUNNER - 06/28/2025 11:59 PM KENO WRITER / RUNNER Hospital Encounter [facility] - Outside Imaging Discharge Disposition: Home or Self Care 06/21/2025 Telephone [facility] - ENT [address] [place] [phone] Vladimir Greer MD Imaging 06/10/2025 Orders Only [facility] - ENT [address] [place] [phone] Vladimir Greer MD Hypopharyngeal cancer (HCC) ; 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 (HCC); Cancer of upper third of esophagus (HCC) 06/08/2025 Telephone [facility] - ENT [address] [place] [phone] Vladimir Greer MD Question (Diagnosis code) 05/31/2025 Telephone [facility] - ENT [address] [place] [phone] Vladimir Greer MD Question 05/27/2025 Orders Only [facility] - ENT [address] [place] [phone] Vladimir Greer MD Hypopharyngeal cancer (HCC) ; Dysphonia 05/10/2025 Telephone [facility] - ENT [address] [place] [phone] Vladimir Greer MD Referral 05/10/2025 Orders Only [facility] - [facility] [address] [place] [phone] Vladimir Greer MD Hypopharyngeal cancer (HCC) 05/04/2025 7:31 AM CDT Anesthesia Event [facility] [address] [place] [phone] Eileen Adan MD Hoyle, Joseph, MD 05/04/2025 7:05 AM CDT - 05/04/2025 9:20 AM CDT Surgery [facility] [address] [place] [phone] Vladimir Greer MD Esopagoscopy 05/04/2025 5:32 AM CDT - 05/04/2025 10:59 AM CDT Hospital Encounter [facility] [address] [place] [phone] Vladimir Greer MD Surgery General Discharge Disposition: Home or Self Care 05/04/2025 Travel 04/28/2025 Telephone [facility] - [facility]NT [address] [place] [phone] Lofton, August Medical Clearance 04/27/2025 2:32 PM CDT - 04/27/2025 11:59 PM CDT Hospital Encounter [facility] - Outside Imaging Discharge Disposition: Home or Self Care 04/27/2025 2:32 PM CDT - 04/27/2025 11:59 PM CDT Hospital Encounter [facility] - Outside Imaging Discharge Disposition: Home or Self Care 04/27/2025 Telephone [facility] - ENT [address] [place] [phone] Vladimir Greer MD Results 04/27/2025 Telephone [facility] - ENT [address] [place] [phone] August Surgery Scheduling 04/23/2025 1:35 PM CDT - 04/23/2025 11:59 PM CDT Hospital Encounter [facility] [address] [place] [phone] Orlando Garcia MD Discharge Disposition: Home or Self Care 04/23/2025 12:55 PM CDT - 04/23/2025 1:34 PM CDT Hospital Encounter [facility] [address] [place] [phone] Orlando Garcia MD Discharge Disposition: Home or Self Care 04/23/2025 11:00 AM CDT Office Visit [facility] - ENT [address] [place] [phone] Orlando Garcia MD Walker, Ronald J, MD Hypopharyngeal cancer (HCC) (Primary Dx); Dysphonia 04/23/2025 Travel 04/21/2025 Telephone [facility] - ENT [address] [place] [phone] Vladimir Greer MD Appointment 04/20/2025 Telephone [facility] - ENT [address] [place] [phone] Pascual Garza MD Referral from Last 3 Months Immunizations Immunization Administration [...] Procedure Name Priority Date/Time Associated Diagnosis Comments PET CT SKULL TO MID THIGH OUTSIDE Routine 06/17/2025 2:39 PM CDT PATHOLOGY TISSUE Routine 05/04/2025 8:04 AM CDT Hypopharyngeal cancer (HCC) ENDOTRACHEAL TUBE NOTE Routine 05/04/2025 7:47 AM CDT CA LARYNGOSCOPY,DIRCT,O P SCOPE,BIOPSY 05/04/2025 7:06 AM CDT Hypopharyngeal cancer (HCC) Special Needs 04/29 CA ESOPHAGOSCOPY FLEX TRANSORAL DX 05/04/2025 7:06 AM CDT Hypopharyngeal cancer (HCC) Special Needs 04/29 CA LARYNGOSCOPY,FLEX FIBER,DIAGNOSTIC Routine 04/23/2025 2:08 PM CDT Dysphonia BASIC METABOLIC PANEL (CALCIUM TOTAL) Routine 04/23/2025 2:06 PM CDT Hypopharyngeal cancer (HCC) CBC W AUTO DIFFERENTIAL Routine 04/23/2025 2:06 PM CDT Hypopharyngeal cancer (HCC) from Last 3 Months Results * PET CT SKULL TO MID THIGH OUTSIDE (06/17/2025 2:39 PM CDT) Narrative [facility] - 06/28/2025 2:39 PM KENO WRITER / RUNNER This is a study from an outside facility that has been uploaded into PACS. us Provider [employer] IMAGING Final Result [facility] * PATHOLOGY TISSUE (05/04/2025 8:04 AM CDT) Case Report Surgical Pathology Report Case: [id number] Authorizing Provider: Vladimir Greer MD Collected: 05/04/2025 08:04 AM Ordering Location: [facility] Received: 05/04/2025 09:49 AM Pathologist: Marisol Callahan MD Specimens: A) - Esophagus, upper esophageal biopsy B) - Larynx Biopsy, left post cricoid biopsy 2:04 PM CDT [facility] Final Diagnosis Upper esophagus, biopsy (A/FSA): - Invasive squamous cell carcinoma, moderately differentiated Cricoid, left post, biopsy (B): - Invasive squamous cell carcinoma, moderately differentiated 2:04 PM CDT [facility] at 1404 CDT Microscopic Description and Comment Microscopic examination substantiates the diagnosis. 2:04 PM CDT [facility] Clinical History The patient is a 75-year-old man with voice changes and a left neck mass. He underwent biopsy of the left neck mass which was inconclusive. He presents now for biopsy site of what appears to be a primary cancer in his upper esophagus/hypopharynx . 2:04 PM CDT [facility] Intraoperative Consultation A.) Upper esophageal bio + are two pink-sanchez tissue fragments, 0.4 x 0.3 x 0.2 cm and 0.7 x 0.5 x 0.2 cm. Submitted in toto as FSA1. Intraoperative diagnosis: FSA1 Upper esophageal biopsy: - Squamous cell carcinoma by Annette Craig MD 2:04 PM CDT [facility] Gross Description The requisition and specimen(s) are identified with the patient's name Albert Coleman. Received in formalin from intraoperative consultation, specimen A, consists of a frozen section remnant of FSA1 that is consistent with the intraoperative note and is submitted in cassette A1. Received in formalin, specimen B, consists of a 0.6 x 0.4 x 0.3 cm hemorrhagic pink-sanchez tissue fragment with no clear resection margin. The specimen is submitted in toto in cassette B1./BAJ 5 2:04 PM CDT [facility] Pathologist Location at [facility] 5 2:04 PM CDT [facility] Disclaimer The performance characteristics of all immunohistochemical and indirect immunofluorescence stains (if any) cited in this report were determined by the Histopathology Laboratory of [facility]. Some of these tests were developed by [...] attending (teaching) pathologist. 5 2:04 PM CDT [facility] Embedded Images 5 2:04 PM CDT [facility] Biopsy, NOS REGION OF ESOPHAGUS / Unknown 05/04/2025 8:04 AM CDT 05/04/2025 9:49 AM CDT Comment:Pre-op diagnosis: Hypopharyngeal cancer Biopsy, Excision LARYNX BIOPSY SPECIMEN / Unknown 05/04/2025 8:10 AM CDT 05/04/2025 9:49 AM CDT Comment:Pre-op diagnosis: Hypopharyngeal cancer Vladimir Greer MD LAB - PATHOLOGY/CYTOLOGY ORDE NATHANIEL Final Result [facility] [address] [place] [address], [facility] [phone] * ETT LINE PERFORMABLE (05/04/2025 7:47 AM CDT) Narrative Lima Garzon APRN-CRNA - 05/04/2025 7:47 AM CDT Lima Garzon APRN-CRNA 05/04/2025 7:48 AM Endotracheal Tube Placement: Patient Location: OR. Procedure: intubation ([id number]) Procedure Section: Sedation: under general anesthesia. Indications [...] No. Staff Section Anesthesia Provider: Lima Garzon APRN-TECHNICAL SERVICE SPECIALIST, Performed the procedure us Eileen Adan MD GENERAL ANESTHESIA ORDERABLES Final Result * CA LARYNGOSCOPY,FLEX FIBER,DIAGNOSTIC (04/23/2025 2:08 PM CDT) Narrative [...] Stable. Patient tolerated procedure well. Complications: None us Vladimir Greer MD PROCEDURE/MINOR SURGICAL ORDE RABLES Final Result * (ABNORMAL) CBC W/ DIFFERENTIAL (04/23/2025 2:06 PM CDT) Pathologist [facility] WBC 8.1 4.0 - 10.7 x10E9/L 04/23/2025 2:38 PM CDT [facility] RBC Count 4.22(L) 4.30 - 5.80 x10E12/L 04/23/2025 2:38 PM [facility] Hemoglobin 10.9(L) 13.3 - 17.5 g/dL 04/23/2025 2:38 PM [facility] Hematocrit 34.9(L) 38.7 - 51.1 % 04/23/2025 2:38 PM [facility] MCV 82.7 80.0 - 98.0 fL 04/23/2025 2:38 PM [facility] MCH 25.8(L) 26.7 - 33.6 pg 04/23/2025 2:38 PM [facility] MCHC 31.2(L) 31.7 - 36.3 g/dL 04/23/2025 2:38 PM [facility] RDW-CV 15.8(H) 11.3 - 14.8 % 04/23/2025 2:38 PM [facility] Platelet Count 351 150 - 420 x10E9/L 04/23/2025 2:38 PM [facility] MPV 9.4 7.8 - 11.4 fL 04/23/2025 2:38 PM [facility] Neutrophil % 58.0 41.0 - 74.0 % 04/23/2025 2:38 PM [facility] Lymphocyte % 28.8 17.0 - 47.0 % 04/23/2025 2:38 PM [facility] Monocyte % 11.8(H) 3.0 - 11.0 % 04/23/2025 2:38 PM [facility] Eosinophil % 0.7 0.0 - 7.0 % 04/23/2025 2:38 PM [facility] Basophil % 0.5 0.0 - 1.6 % 04/23/2025 2:38 PM [facility] Immature Granulocytes % 0.2 0.0 - 1.0 % 04/23/2025 2:38 PM [facility] Neutrophil Absolute 4.70 1.60 - 7.50 x10E9/L 04/23/2025 2:38 PM [facility] Lymphocyte Absolute 2.34 1.00 - 4.40 x10E9/L 04/23/2025 2:38 PM CDT [facility] Monocyte Absolute 0.96 0.15 - 1.00 x10E9/L 04/23/2025 2:38 PM T [facility] Eosinophil Absolute 0.06 0.00 - 0.60 x10E9/L 04/23/2025 2:38 PM T [facility] Basophil Absolute 0.04 0.00 - 0.13 x10E9/L 04/23/2025 2:38 PM T [facility] Blood BLOOD SPECIMEN / Unknown Lab Venipuncture / Unknown 04/23/2025 2:06 PM CDT 04/23/2025 2:27 PM CDT us Orlando Garcia MD LAB - HEMATOLOGY ORDERABLES Tammie l Result [address] [address], [facility] [phone] * (ABNORMAL) BASIC METABOLIC PANEL (CALCIUM TOTAL) (04/23/2025 2:06 PM CDT) BUN 14 7 - 26 mg/dL 04/23/2025 2:54 PM [facility] Creatinine 1.00 0.71 - 1.16 mg/dL 04/23/2025 2:54 PM [facility] Sodium 136 136 - 145 mmol/L 04/23/2025 2:54 PM [facility] Potassium 4.3 3.5 - 4.5 mmol/L 04/23/2025 2:54 PM [facility] Chloride 103 98 - 107 mmol/L 04/23/2025 2:54 PM [facility] CO2 24 22 - 29 mmol/L 04/23/2025 2:54 PM [facility] Glucose 97 70 - 99 mg/dL 04/23/2025 2:54 PM [facility] Calcium 9.0 8.4 - 10.2 mg/dL 04/23/2025 2:54 PM [facility] Anion Gap 9 6 - 16 04/23/2025 2:54 PM [facility] BUN/Creatinine Ratio 14 7 - 23 04/23/2025 2:54 PM CDT [facility] Osmolality Calculated 282 275 - 295 mOsm/kg 04/23/2025 2:54 PM CDT [facility] eGFR by CKD-EPI 78(L) >=90 mL/min/1.7 3 m2 04/23/2025 2:54 PM CDT [facility] Comment:Estimated Glomerular Filtration Rate (eGFR) calculated using the CKD-EPI Creatinine Equation (2020), per the National Kidney Foundation and [place] Society of Nephrology recommendations. Blood BLOOD SPECIMEN / Unknown Lab Venipuncture / Unknown 04/23/2025 2:06 PM CDT 04/23/2025 2:27 PM CDT Orlando Garcia MD LAB - CHEMISTRY ORDERABLES Final Result [facility] [address] [place] [address], [facility] [phone] from Last 3 Months Insurance [facility] MEDICA[employer] - [place] SELF PAY NO INSURANCE Member Subscriber Plan / Payer (Ef fective for All Dates) Name:Albert Coleman Member ID:Not on file Relation to Subscriber:Not on file Name:ALBERT COLEMAN Subscriber ID:Not on file (Home) Address: [address] [place] [phone] Payer ID:Not on file Group ID:Not on file Type:Self Pay Address: [place], [place] [employer] MED[employer]ARE ADV HMO & PPO Care Teams Extruder Tender Relationship Specialty Start Date End Date Kevin Brooks MD [address] [place] [phone] PCP - General Family Medicine 04/19/25
--- OUTSIDE RECORDS SUMMARY | 2025-07-15 10:06 | XMS_ITS | Clinical Summary ---
Author Organization [facility] Address [facility] [place] [address] Care Team Providers Care Garbage Stoker Name Role Phone Kevin Santacruz MD Primary Care Provider Hari Foster MD Unavailable Navjot Rojas MD Unavailable Unavailable Sophia Clay NP Unavailable [phone] Shea Calderon MD Unavailable Allergies Active Allergy Reactions Criticality [...] TWICE A DAY 180 tablet 05/17/2022 Active losartan (COZAAR) 50 MG tablet Take 1 tablet (50 mg total) by mouth daily. 30 tablet 11 11/16/2024 Active metoprolol succinate ER (TOPROL-XL) 25 MG 24 hr tablet Take 1 tablet (25 mg total) by mouth daily. 30 tablet 11 11/19/2024 Active cilostazol (PLETAL) 50 MG tablet TAKE 1 TABLET BY MOUTH TWICE A DAY 180 tablet 3 03/26/2025 Active Active Problems Problem Noted Date Diagnosed Date Atherosclerosis of coronary artery of [place] heart with stable angina pectoris 05/11/2020 History of coronary artery stent placement 05/11 Carotid artery disease without cerebral infarcti on 04/01/2018 PAD (peripheral artery disease) 02/11/2018 Essential hypertension 02/11/2018 Hyperlipidemia, unspecified hyperlipidemia type 02/11/2018 Tobacco smoke exposure 02/11/2018 Encounters Date Type Department Care Team Description 06/24/2025 11:30 AM CDT - 06/24/2025 11:59 PM CDT Hospital Encounter [facility] - [address] [address] Johnnie Dueñas MD Discharge Disposition: Home or Self Care (Routine Discharge) 06/24/2025 Travel 06/03/2025 Travel 05/27/2025 10:30 AM CDT - 05/27/2025 11:59 PM CDT Hospital Encounter [facility]iation [facility]cology - [address] [address] Johnnie Deuñas MD Discharge Disposition: Home or Self Care (Routine Discharge) 05/27/2025 Travel 05/18/2025 Telephone [facility] [address] [place] [address] Shea Calderon MD Surgical Clearance 05/17/2025 3:15 PM CDT [facility] [address] [place] [address] Shea Calderon MD Heart Problem 05/17/2025 2:21 PM CDT - 05/17/2025 11:59 PM CDT Hospital Encounter [facility] [address] [place] [address] Shea Calderon MD Discharge Disposition: Home or Self Care (Routine Discharge) 05/17/2025 2:21 PM CDT - 05/17/2025 11:59 PM CDT Hospital Encounter [facility] [address] [place] [address] Shea Calderon MD Discharge Disposition: Home or Self Care (Routine Discharge) 05/17/2025 Travel 05/17/2025 Orders Only [facility] [address] [place] [address] Shea Calderon MD 05/13/2025 Telephone [facility] [address] [place] [address] Shea Calderon MD Appointment Reminder 05/07/2025 Telephone [facility] [address] [place] [phone] Shea Calderon MD Surgical Clearance from Last 3 Months Immunizations Immunization Administration Dates Next Due Influenza [...] Information Value Date Recorded Sex Assigned at Male 05/17/2025 2:19 PM CDT Legal Sex Male 10:44 PM CDT Gender Identity Not on file Sexual Orientation Not on file Occupation Industry Job Start Date Job End Date disabled Not on file Not on file Not on file Last Filed Vital Signs Vital Sign Reading Time Taken Comments Blood Pressure 160/101 05/17/2025 3:50 PM CDT Pulse 120 11/16/2024 3:10 PM CDT Temperature 36.1 C (97 F) 05/05/2020 7:52 AM CDT Respiratory Rate 16 05/17/2025 3:39 PM CDT Oxygen Saturation 100% 05/17/2025 3:39 PM CDT Inhaled Oxygen Concentration - - Weight 63.5 kg (140 lb) 05/17/2025 3:39 PM CDT Height 177.8 cm (5' 10) 05/17/2025 3:39 PM CDT Body Mass Index 20.09 05/17/2025 3:39 PM CDT Plan of Treatment Upcoming Encounters Date Type Department Care Team (Late st Contact Info) Description 08/16/2025 12:30 PM CULTURE MANAGER [facility]ointment [facility] [address] [place] [address] Shea Calderon MD [address] [place] [address] 08/16/2025 1:30 [address] [place] [address] Shea Calderon MD [address] [place] [address] 11/15/2025 3:15 PM CDT Office Visit [facility] [address] [place] [address] Shea Calderon MD [address] [place] [address] Health Maintenance Due Date Last Done Comments ASCVD Statin 1950 Hepatitis C 01/24/1966 Zoster Vaccines (1 of 2) 01/24/1998 Annual Medicare Wellness Visit 01/24/2013 ASCVD LDL 04/02/2019 04/02/2018 RSV Immunization or 60+ Years (1 - 1-dose 75+ series) 01/24/2023 DTaP, Tdap and Td Vaccines (2 - Td or Tdap) 03/18/2023 03/18/2013 COVID-19 Vaccine ( season) 2025 05/17/2022, 05/30/2021, 11/09/2020, Additional history exists Influenza Adult (#1) 2025 05/31/2022, 05/05/2021, 06/03/2020, Additional history exists Lung Cancer Screening 03/25/2026 03/25/2025 Pneumococcal Vaccine: 50+ Years Completed 10/18/2015, 06/11/2014, 04/24/2011 Hepatitis A Vaccines Aged Out No long er eligible based on patient's age to complete this topic Meningococcal B Vaccine Aged Out No l onger eligible based on patient's age to complete this topic Meningococcal Vaccine Aged Out No viki fred eligible based on patient's age to complete this topic RSV Immunizations Under 20 Months Aged Out No longer eligible based on patient's age to complete this topic Medical Devices Implanted Type Area Circuit Breaker Mechanic Device Identifier Shelf Expiration Date Model / Serial / Lot Cv-Osiro Aly Stent-Lcx D [id number]/10/20 20 Implanted:Qty: 1 on 05/05/2020 by Navjot Rojas MD Stent Coronary LCX [employer] 05/13/2021 [id number] / / [id number] Description:LCX distal: Biot ronik Osiro 2.25mm x 30mm Cv-Osior Aly Stent-Lcx M 2.5x22- 0 Implanted:Qty: 1 on 05/05/2020 by Navjot Rojas MD Stent Coronary LCX [employer] 04/19/2021 [id number] / / [id number] Description:LCx mid: Biotron ik Osiro 2.5mm x 22mm Protege [id number] 0cm - [id number] Implanted:05/01 by Navjot Rojas MD at [facility] (Quantity not on file) [employer] 08/06/2019 [id number] / / [id number] Procedures Procedure Name Priority Date/Time Associated Diagnosis Comments ECG 12-LEAD Routine 05/17/2025 3:15 PM CDT Essential hypertension Hyperlipidemia, mixed Bilateral carotid artery stenosis USV CAROTID DUPLEX EDITH Routine 05/17/2025 3:10 PM CDT Carotid stenosis CT CHEST W CON Routine 03/25/2025 9:14 AM CDT Localized swelling, mass and lump, neck LIPID PANEL Routine 04/02/2018 PAD (peripheral artery disease) Carotid artery disease without cerebral infarction Essential hypertension Hyperlipidemia, unspecified hyperlipidemia type from Last 3 Months or Most Recently Relevant to Health Maintenance Results * ECG 12 lead (05/17/2025 3:15 PM CDT) 05/17/2025 3:15 PM CDT Narrative [facility] - 05/17/2025 8:32 PM CDT [address] 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 [address] Test Date: 2025-05-17 Pat Name: CJ COLEMAN Department: 3 Room: Gender: Male Lockstitch Topstitcher: : 1950 Requested By: SHEA CALDERON Order Number: [id number] Reading : Shea Calderon Measurements Intervals Howe Rate: 86 P: 4 ND: 165 QRS: 40 QRSD: 99 T: 55 QT: 379 QTc: 455 Interpretive Statements SINUS RHYTHM WITH OCCASIONAL VENTRICULAR PREMATURE COMPLEXES INCOMPLETE RIGHT BUNDLE BRANCH BLOCK MODERATE VOLTAGE CRITERIA FOR LVH, CONSIDER NORMAL VARIANT POSSIBLE ANTEROSEPTAL MYOCARDIAL INFARCTION , OF INDETERMINATE AGE us Shea Calderon MD ECG ORDERABLES Final Result [facility] * USV CAROTID DUPLEX EDITH (05/17/2025 3:10 PM CDT) Anatomical Region Laterality Modality Neck Ultrasound 05/17/2025 2:47 PM CDT Narrative 05/18/2025 7:31 PM CDT Outreach Carotid Ultrasound Vascular Report Pat.Name: Cj Coleman Pat.ID: [id number] .Date: 05/17/2025 Refer.MD: Hugh, [facility] Exam Time: 2:47:00 PM Study Type:OUTREACH CAROTID SCAN BILATERAL Height: 71 in Age: 6 1950,75Y Sex: M Sonogrphr: Hw Pat. Stat.:Outpatient CPT - 4: 56030 Carotid Duplex Reason for Study:Carotid stenosis Procedures: Study performed at [place], [place] and interpreted by [facility]. ++++++++++++++++++++++++++++++++++++ FINDINGS: ++++++++++++++++++++++++++++++++++++ Rt ICA: 40-59% stenosis noted in the internal carotid artery. Mild heterogeneous plaque noted. Tortuous ICA noted. Rt ECA: Patent with antegrade flow noted in the external carotid artery. Rt Vert: Normal antegrade vertebral flow. Lt ICA: 40-59% stenosis noted in the internal carotid artery. Mild/moderate heterogeneous plaque noted. Lt ECA: Patent with antegrade flow noted in the external carotid artery. Lt Vert: Normal antegrade vertebral flow. Carotid Findings: Right Left Verteb.Flw Antegrade Antegrade ++++++++++++++++++++++++++++++++++++ MEASUREMENTS: ++++++++++++++++++++++++++++++++++++ DOPPLER Right Prox CCA Prox CCA PSV 80 cm/s Prox CCA EDV 12 cm/s Right Mid CCA Mid CCA PSV 82 cm/s Mid CCA EDV 15 cm/s Right Dist CCA Dist CCA PSV 87 cm/s Dist CCA EDV 20 cm/s Right Prox ICA Prox ICA PSV 88 cm/s Prox ICA EDV 14 cm/s Right Mid ICA Mid ICA PSV 82 cm/s Mid ICA EDV 15 cm/s Right Dist ICA Dist ICA PSV 117 cm/s Dist ICA EDV 18 cm/s Right Prox ECA Prox ECA PSV 85 cm/s Right Bifurcation Bifurcation PSV 99 cm/s Bifurcation EDV 20 cm/s Right Vertebral Vertebral PSV 38 cm/s Vertebral EDV 10 cm/s Right ICA/CCA RATIO ICA/CCA RATIO P 1.34 Left Prox CCA Prox CCA PSV 92 cm/s Prox CCA EDV 14 cm/s Left Mid CCA Mid CCA PSV 103 cm/s Mid CCA EDV 20 cm/s Left Dist CCA Dist CCA PSV 90 cm/s Dist CCA EDV 19 cm/s Left Prox ICA Prox ICA PSV 98 cm/s Prox ICA EDV 22 cm/s Left Mid ICA Mid ICA PSV 108 cm/s Mid ICA EDV 21 cm/s Left Dist ICA Dist ICA PSV 120 cm/s Dist ICA EDV 41 cm/s Left Prox ECA Prox ECA PSV 128 cm/s Left Bifurcation Bifurcation PSV 129 cm/s Bifurcation EDV 29 cm/s Left Vertebral Vertebral PSV 38 cm/s Vertebral EDV 10 cm/s Left ICA/CCA RATIO ICA/CCA RATIO P 1.33 <Electronic Signature> 05/18/2025 07:31 PM Shea Calderon M.D. Procedure Note Shea Calderon MD - 05/18/2025 Outreach Carotid Ultrasound Vascular Report Pat.Name: Cj Coleman Pat.ID: [id number] .Date: 05/17/2025 Refer.MD: [facility] Exam Time: 2:47:00 PM Study Type:OUTREACH CAROTID SCAN BILATERAL Height: 71 in Age: 6 1950,75Y Sex: M Sonogrphr: Hw Pat. Stat.:Outpatient CPT - 4: 48398 Carotid Duplex Reason for Study:Carotid stenosis Procedures: Study performed at [place], [place] and interpreted by [facility]. ++++++++++++++++++++++++++++++++++++ FINDINGS: ++++++++++++++++++++++++++++++++++++ Rt ICA: 40-59% stenosis noted in the internal carotid artery. Mild heterogeneous plaque noted. Tortuous ICA noted. Rt ECA: Patent with antegrade flow noted in the external carotid artery. Rt Vert: Normal antegrade vertebral flow. Lt ICA: 40-59% stenosis noted in the internal carotid artery. Mild/moderate heterogeneous plaque noted. Lt ECA: Patent with antegrade flow noted in the external carotid artery. Lt Vert: Normal antegrade vertebral flow. Carotid Findings: Right Left Verteb.Flw Antegrade Antegrade ++++++++++++++++++++++++++++++++++++ MEASUREMENTS: ++++++++++++++++++++++++++++++++++++ DOPPLER Right Prox CCA Prox CCA PSV 80 cm/s Prox CCA EDV 12 cm/s Right Mid CCA Mid CCA PSV 82 cm/s Mid CCA EDV 15 cm/s Right Dist CCA Dist CCA PSV 87 cm/s Dist CCA EDV 20 cm/s Right Prox ICA Prox ICA PSV 88 cm/s Prox ICA EDV 14 cm/s Right Mid ICA Mid ICA PSV 82 cm/s Mid ICA EDV 15 cm/s Right Dist ICA Dist ICA PSV 117 cm/s Dist ICA EDV 18 cm/s Right Prox ECA Prox ECA PSV 85 cm/s Right Bifurcation Bifurcation PSV 99 cm/s Bifurcation EDV 20 cm/s Right Vertebral Vertebral PSV 38 cm/s Vertebral EDV 10 cm/s Right ICA/CCA RATIO ICA/CCA RATIO P 1.34 Left Prox CCA Prox CCA PSV 92 cm/s Prox CCA EDV 14 cm/s Left Mid CCA Mid CCA PSV 103 cm/s Mid CCA EDV 20 cm/s Left Dist CCA Dist CCA PSV 90 cm/s Dist CCA EDV 19 cm/s Left Prox ICA Prox ICA PSV 98 cm/s Prox ICA EDV 22 cm/s Left Mid ICA Mid ICA PSV 108 cm/s Mid ICA EDV 21 cm/s Left Dist ICA Dist ICA PSV 120 cm/s Dist ICA EDV 41 cm/s Left Prox ECA Prox ECA PSV 128 cm/s Left Bifurcation Bifurcation PSV 129 cm/s Bifurcation EDV 29 cm/s Left Vertebral Vertebral PSV 38 cm/s Vertebral EDV 10 cm/s Left ICA/CCA RATIO ICA/CCA RATIO P 1.33 <Electronic Signature> 05/18/2025 07:31 PM Shea Calderon M.D. Shea Calderon MD [facility] Final Result * CT CHEST W CON (03/25/2025 9:14 AM CDT) Anatomical Region Laterality Modality Chest Computed Tomogra phy 03/29/2025 3:56 PM CDT Impressions 03/29/2025 4:15 PM CDT IMPRESSION: 1. Findings suspicious for metastatic esophageal carcinoma as described. Follow- up with endoscopy is recommended as the initial step in further evaluation. 2. Coronary artery disease. 3. Borderline to mild four-chamber cardiac enlargement. Ordered By: KEVIN SANTACRUZ Interpreted By: Lico Gomez MD, 03/29/2025 3:56 PM Narrative 03/29/2025 4:15 PM [address] [place] [address] Examination: CT of the chest with contrast. Exam time: 0906 hours. Clinical history: Left-sided neck mass. History of smoking. Prior vagotomy and cholecystectomy. Comparison: None. Technique: Following the administration of intravenous contrast, spiral scanning was performed through the chest. Sagittal and coronal reconstructions were performed from the data set. A dose lowering technique was used for this procedure, which may include, but is not limited to, dose reduction techniques, automated exposure control, the use of iterative reconstruction and ALARA/Image Gently techniques. Findings: There is image degradation due to respiratory motion. There is calcific coronary artery disease. There is mild atherosclerotic calcification of the aorta and arch vessels. There is borderline to mild four-chamber cardiac enlargement. The heart and great vessels are otherwise unremarkable. There are calcified mediastinal and bilateral hilar lymph nodes, compatible with old granulomatous disease. There is an apparent mass in the cervical esophagus (image 16 for example), suspicious for neoplasm. There is a mildly enlarged proximal right paratracheal lymph node. There are additional lower cervical and mediastinal lymph nodes which are not enlarged but demonstrate central hypoenhancement suggesting necrosis (image 10 for example). These are suspicious for metastasis. No endobronchial abnormality is identified. There is minor biapical scarring. There are calcified granulomas in the middle and left lower lobes. 2-3 mm perifissural lymph node along the major fissure on the right is noted. There is a suspected subcentimeter noncalcified nodule in the left lower lobe, objectively indeterminate. Allowing for the respiratory motion, the lungs are otherwise grossly clear. No pleural abnormalities are seen. The chest wall structures appear intact. No suspicious bony lesion is identified. The included sections through the upper abdomen show no acute process. Surgical clips from vagotomy and cholecystectomy are noted. There are calcified splenic granulomas. Procedure Note Lico Gomez MD - 03/29/[address] [place] [address] Examination: CT of the chest with contrast. Exam time: 0906 hours. Clinical history: Left-sided neck mass. History of smoking. Prior vagotomyand cholecystectomy. Comparison: None. Technique: Following the administration of intravenous contrast, spiralscanning was performed through the chest. Sagittal and coronalreconstructions were performed from the data set. A dose loweringtechnique was used for this procedure, which may include, but is notlimited to, dose reduction techniques, automated exposure control, the useof iterative reconstruction and ALARA/Image Gently techniques. Findings: There is image degradation due to respiratory motion. There iscalcific coronary artery disease. There is mild atheroscleroticcalcification of the aorta and arch vessels. There is borderline to mildfour-chamber cardiac enlargement. The heart and great vessels areotherwise unremarkable. There are calcified mediastinal and bilateralhilar lymph nodes, compatible with old granulomatous disease. There is anapparent mass in the cervical esophagus (image 16 for example), suspiciousfor neoplasm. There is a mildly enlarged proximal right paratracheal lymphnode. There are additional lower cervical and mediastinal lymph nodeswhich are not enlarged but demonstrate central hypoenhancement suggestingnecrosis (image 10 for example). These are suspicious for metastasis. Noendobronchial abnormality is identified. There is minor biapical scarring.There are calcified granulomas in the middle and left lower lobes. 2-3 mmperifissural lymph node along the major fissure on the right is noted.There is a suspected subcentimeter noncalcified nodule in the left lowerlobe, objectively indeterminate. Allowing for the respiratory motion, thelungs are otherwise grossly clear. No pleural abnormalities are seen. Thechest wall structures appear intact. No suspicious bony lesion isidentified. The included sections through the upper abdomen show no acuteprocess. Surgical clips from vagotomy and cholecystectomy are noted. Thereare calcified splenic granulomas. IMPRESSION: 1. Findings suspicious for metastatic esophageal carcinoma as described.Follow- up with endoscopy is recommended as the initial step in furtherevaluation. 2. Coronary artery disease. 3. Borderline to mild four-chamber cardiac enlargement. Ordered By: KEVIN SANTACRUZ Interpreted By: Lico Gomez MD, 03/29/2025 3:56 PM Kevin Santacruz MD CT Final Result * LIPID PANEL (04/02/2018) CHOLESTEROL 164 HDL 47 TRIGLYCERIDES 86 LDL (CALCULATED) 100 04/02/2018 Hari Foster MD LABORATORY Final Result from Last 3 Months or Most Recently Relevant to Health Maintenance Insurance MEDICAID [facility] MEDICARE MEDICAID Advance Directives * Full Code (Latest Code Status on File) Date Activated Date Inactivated Comments 05/05/2020 11:14 AM 05/05/2020 7:32 PM * Full Code Date Activated Date Inactivated Comments 05/01/2018 11:10 AM 05/01/2018 6:58 PM Care Teams Garbage Stoker Relationship Specialty Start Date End Date Kevin Santacruz MD [address] [place] [address] PCP - General FAMILY PRACTICE 01/15/18 Hari Foster MD [address] [place] [address] Vascular/Shot Peening Operator INTERNAL MEDICINE 01/15/18 Navjot Rojas MD [address] [place] [address] Consulting Physician INTERVENTIONAL CARDIOLOGY 04/07/20 Sophia Clay NP [address] [place] [phone] Nurse Practitioner Nurse Practitioner Family 04/07/20 Shea Calderon MD [address] [place] [address] Consulting Physician CARDIOVASCULAR DISEASE 03/01/23
[2025-07-15 11:05] LABS: Hematocrit 32.6 % (42.0-52.0); Hemoglobin 10.1 g/dL (14.0-18.0); Immature Granulocyte Percent A 0.3 % (0-0.5); Immature Reticulocyte Fraction 21.7 % (3.0-15.9); Lymphocytes Absolute Auto 1.42 K/mm3 (0.9-3.2); Mean Corpuscular HGB Conc 31.0 g/dl (32-36); Mean Corpuscular Hemoglobin 26.7 pg (26-34); Mean Corpuscular Volume 86.2 fl (80-100); Nucleated Red Blood Cells Absolute Auto 0.000 K/mm3 (0.0-0.012); Nucleated Red Blood Cells Perc 0.0 % (0.0-0.2); Platelet Count Result 379 k/mm3 (150-375); Red Blood Count 3.78 M/mm3 (4.6-6.20); Reticulocyte Hemoglobin Conten 25.8 pg (28.2-36.6); Reticulocytes Absolute 0.05 10^6/uL (0.02-0.10); White Blood Count 6.5 K/mm3 (4.5-10.0)
[2025-07-15 11:30] LABS: Alanine Aminotransferase 14 U/L (6-50); Albumin Level 4.2 g/dL (3.5-5.1); Alkaline Phosphatase 113 U/L (38-126); Anion Gap 9 mmol/L (4-12); Aspartate Amino Transferase 28 U/L (17-59); Bilirubin,Total 0.4 mg/dL (0.2-1.3); Blood Urea Nitrogen 13 mg/dL (9-20); Calcium 9.1 mg/dL (8.4-10.2); Carbon Dioxide 24 mmol/L (22-30); Chloride 102 mmol/L (98-107); Estimated Glomerular Filt Rate > 60; Glucose 95 mg/dL (65-110); Potassium 4.2 mmol/L (3.4-5.0); Sodium 135 mmol/L (137-145); Total Protein 8.0 g/dL (6.3-8.2)
[2025-07-15 11:31] LABS: Iron 50 ug/dL (49-181)
[2025-07-15 12:06] LABS: Carcinoembryonic Antigen 2.5 ng/mL (0.0-3.0)
[2025-07-15 12:07] LABS: HIV 1/2 Ab P24 Ag Result Negative (Negative)
[2025-07-15 12:43] LABS: Vitamin B12 > 1000.0 pg/mL (239-931)
== END 2025-07-15 08:54 | disposition home or self-care (01) ==
PROVIDERS: PCP Family Medicine; Visit Provider Internal Medicine Hematology
DX: C15.9 Malignant neoplasm of esophagus, unspecified (principal); Z11.4 Encounter for screening for human immunodeficiency virus [HIV]
CPT/HCPCS: 36415; 80053; 82378; 82533; 82607; 82746; 83540; 83615; 85025; 85046; 86703; G0432

== ENCOUNTER 2025-08-13 09:50 | Outpatient (CLI) | payer MEDICARE, MEDICAID, SELFPAY ==
--- OUTSIDE RECORDS SUMMARY | 2025-08-13 09:15 | XMS_ITS | Encounter Summary ---
Author Organization [facility] Address [address] [place] [address] Care Team Providers Care Comic Artist Name Role Phone Unavailable Primary Care Provider Unavailabl e Reason for Referral * Eval and Treat (Routine) - Open Specialty Diagnoses / Procedures Referred By Aidan julian Referred To Contact Surgery Diagnoses Cancer of cardio-esophageal junction (CMS/HCC) Procedures IN OFFICE/OUTPATIENT ESTABLISHED MOD MDM 30 MIN IN OFFICE/OUTPATIENT NEW MODERATE MDM 45 MINUTES Álvaro Jacome MD [address] [place] [phone] Phone: tel: fax: Maico Fraser, DO [address] [facility] [address] [place] [address] Phone: tel: fax: Referral ID Status Reason Start Date Expiration Date V isits Requested Visits Authorized [id number] Open CRS To Schedule (STL) 08/13/2025 08/13/2026 1 1 OLL SERVICES ANALYST * Eval and Treat (Routine) - Open Specialty Diagnoses / Procedures Referred By Adian julian Referred To Contact Oncology Diagnoses Cancer of cardio-esophageal junction (CMS/HCC) Procedures IN OFFICE/OUTPATIENT ESTABLISHED MOD MDM 30 MIN IN OFFICE/OUTPATIENT NEW MODERATE MDM 45 MINUTES Álvaro Jacome MD [address] [place] [phone] Phone: tel: fax: Referral ID Status Reason Start Date Expiration Date Visits Re quested Visits Authorized [id number] Open 08/13/2025 08/14/2026 1 1 OLL SERVICES ANALYST * CT Scan (Urgent) - Open Specialty Diagnoses / Procedures Referred By Aidan julian Referred To Contact Diagnoses Lung nodule Procedures CT BIOPSY LUNG LEFT Álvaro Jacome MD [address] [place] [address] Phone: tel: fax: [address] [phone] Referral ID Status Reason Start Date Expiration Date V isits Requested Visits Authorized [id number] Open CRS to Schedule 08/13/2025 09/13/2026 1 1 OLL SERVICES ANALYST Reason for Visit * Reason Comments Establish Care Cancer Encounter Details Date Type Department Care Team (Late st Contact Info) Description 08/13/2025 9:15 AM PAYROLL SERVICES ANALYST Office Visit [facility] Oncology and Hematology - Jason [address] [facility] [address] [place] [address] Álvaro Jacome MD [address] [place] [address] Lung nodule (Primary Dx); Cancer of cardio-esophageal junction (CMS/HCC) Social History Tobacco Use Types Packs/Day Years Used Date Smoking Tobacco: Former Cigarettes 1 20 0 08/26/1959 - 08/26/1979 Smokeless Tobacco: Never Tobacco Cessation:Counseling Given: Not Answered Alcohol Use Standard Drinks/Week Comments Not Currently 0 (1 standard drink = 0.6 oz pur e alcohol) heavy drinker before Sex and Gender Information Value Date Recorded Sex Assigned at Not on file Legal Sex Male 10:43 AM CDT Gender Identity Not on file Sexual Orientation Not on file documented as of this encounter Last Filed Vital Signs Vital Sign Reading Time Taken Comments Blood Pressure 168/106 08/13/2025 9:10 AM PAYROLL SERVICES ANALYST Pulse 86 08/13/2025 9:07 AM PAYROLL SERVICES ANALYST Temperature 36.1 C (97 F) 08/13/2025 9:07 AM PAYROLL SERVICES ANALYST Respiratory Rate 16 08/13/2025 9:07 AM PAYROLL SERVICES ANALYST Oxygen Saturation 95% 08/13/2025 9:07 AM PAYROLL SERVICES ANALYST Inhaled Oxygen Concentration - - Weight 64.7 kg (142 lb 9.6 oz) 08/13/2025 9:07 A M PAYROLL SERVICES ANALYST Height 177.8 cm (5' 10) 08/13/2025 9:07 AM PAYROLL SERVICES ANALYST Body Mass Index 20.46 08/13/2025 9:07 AM PAYROLL SERVICES ANALYST documented in this encounter Progress Notes * Álvaro Jacome MD - 08/13/2025 9:50 AM CST Hematology-oncology consult Note Requesting Physician Shante Holguin MD Primary Care Physician No primary care provider on file. Problem list There is no problem list on file for this patient. Previous TREATMENT ? Measurable Disease ? Reason for Visit Albert Merino is a 75 y.o. male who was referred for consultation for metastatic esophageal cancer. History of present illness This is a pleasant 75-year-old male with a remote history of smoking 1 pack/day for 20 years duration but quit in 1979 started having some dysphagia about a year ago and then subsequently developed left neck swelling 6 months ago. Patient had EGD done on May 21, 2025 that showed malignant appearing upper esophageal mass with hiatal hernia. Biopsy showed moderately differentiated squamous cell carcinoma with acute ulceration. Patient also had PET scan done on June 18, 2025 that showed mass in the cervical esophagus with increased activity, mass in the left hypopharynx with increased activity and neck and chest lymphadenopathy along with a left lung nodule 5 mm and 8 mm in size with increased activity consistent with metastatic disease. Surprisingly he denies any weight loss. Denies any chest pain and shortness of breath. He was seen by Dr. Holguin for radiation oncology consultation and the lung biopsy was ordered but has not been performed yet. Patient also had ultrasound-guided biopsy of the left-sided neck mass but done on March 17, 2025 that showed metastatic squamous cell carcinoma. He has no previous history of malignancy. Denies any other complaints. Past Medical History Past Medical History: Diagnosis Date Asthma Depression Heart attack (CMS/HCC) Hyperlipidemia Hypertension Malignant neoplasm (CMS/HCC) Surgical History Past Surgical History: Procedure Laterality Date HX CHOLECYSTECTOMY Medications Current Outpatient Medications Medication Sig Dispense Refill cilostazoL (PLETAL) 50 mg Tablet Take 50 mg by mouth 2 times daily. famotidine (PEPCID) 20 mg tablet Take 20 mg by mouth daily. losartan (COZAAR) 100 mg tablet Take 1 Tablet by mouth daily. metoprolol succinate (TOPROL XL) 25 mg Extended Release 24 hour tablet Take 25 mg by mouth daily. omeprazole (PriLOSEC) 40 mg Capsule, Delayed Release(E.C.) Take 40 mg by mouth daily before breakfast. Xarelto 2.5 mg Tablet Take 2.5 mg by mouth 2 times daily. multivitamin (DAILY-RYANNE) tablet Take 1 Tablet by mouth daily. cyanocobalamin (VITAMIN B-12) 100 mcg tablet Take 50 mcg by mouth daily. finasteride (PROSCAR) 5 mg tablet Take 5 mg by mouth daily. aspirin (EMILY CHEWABLE) 81 mg Tablet, Chewable Take 81 mg by mouth daily. No current facility-administered medications for this visit. Allergies No Known Allergies Immunizations: There is no immunization history on file for this patient. Family History Family History Problem Relation Name Age of Onset Cancer Father No Known Problems Mother Pancreatic Cancer Brother No Known Problems Brother No Known Problems Sister No Known Problems Sister No Known Problems Sister No Known Problems Child No Known Problems Child Social History Social History Tobacco Use Smoking status: Former Current packs/day: 0.00 Average packs/day: 1 pack/day for 20.0 years (20.0 ttl pk-yrs) Types: Cigarettes Start date: 08/26/1959 Quit date: 08/26/1979 Years since quittin.9 Smokeless tobacco: Never Substance Use Topics Alcohol use: Not Currently Comment: heavy drinker before Review of Systems Constitutional: Patient did not mention fever; no night sweats; no anorexia; no weight loss; no fatique NEENT: Patient did not mention headache; no change in vision; no change in hearing; no sore throat;complain of dysphagia and some discomfort in the left side of the neck Respiratory: Patient did not mention shortness of breath; no pleuritic chest pain; no cough; no hemoptysis Cardiac: Patient did not mention cardiac-like chest pain; no palpitations; no orthopnea; no PND; noDOE GI: Patient did not mention abdominal pain; no nausea; no vomiting; no diarrhea; no hematochezia; no melena : Patient did not mention dysuria; no frequency; no hesitancy; no hematuria CUSTOM GARMENT DESIGNER: Musculosketetal: Patient did not mention bone pain; no arthralgia; no joint swelling; no myalgia; Skin: Patient did not mention pruritis; no rash; no petechiae; no ecchymoses Endocrine: Patient did not mention polydipsia; no polyuria; no unusual weight gain Neuro: Patient did not mention headache; no change in vision; no sensory changes; no muscle weakness; no confusion; no seizures Psych: Patient did not mention anxiety; no depression; Physical Exam Vitals: As per nursing note Constitutional: Well developed, well nourished, no acute distress, non-toxic appearance Teeth and gum. No signs of infection or swelling. Eyes: PERRL, conjunctiva normal HEENT: Atraumatic, external ears normal, nose normal, oropharynx moist, no pharyngeal exudates. no sinus tenderness Neck- normal range of motion, no tenderness, supple Respiratory: No respiratory distress, normal breath sounds, no rales, no wheezing Cardiovascular: Normal rate, normal rhythm, no murmurs, no gallops, no rubs GI: Soft, nondistended, normal bowel sounds, nontender, no splenomegaly, no hepatomegaly, no mass, no rebound, no guarding : No costovertebral angle tenderness Musculoskeletal: No edema, no tenderness, no deformities. Back- no tenderness Integument: Well hydrated, no rash, Digits and nails inspection normal Lymphatic: Prominent left neck lymphadenopathy Neurologic: Alert & oriented x 3, CN 2-12 normal, normal motor function, normal sensory function, no focal deficits noted Psychiatric: Speech and behavior appropriate ? labs No results found for this or any previous visit (from the past 24 hours). Pathology ? Imaging & Other Studies Performance Status? ECOG performance status 1 Assessment / Plan: ? 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 Patient also had EGD done on May 21, 2025 that showed malignant appearing upper esophageal mass with hiatal hernia. Biopsy showed moderately differentiated squamous cell carcinoma with acute ulceration. Patient also had PET scan done on June 18, 2025 that showed mass in the cervicalesophagus with increased activity, mass in the left hypopharynx with increased activity and neck and chest lymphadenopathy along with a left lung nodule 5 mm and 8 mm in size with increased activity consistent with metastatic disease. I have reviewed pathology report and imaging study finding and my concern regarding metastatic esophageal cancer with the patient. I will order the CT-guided biopsyof the left lung mass as well as [employer]us [employer] ration sequencing. I will refer him for Mediport placement as well as chemotherapy teaching for 5-FU and oxaliplatin based regimen along with immunotherapy treatment. I will see him back in 2 weeks to discuss pathology report from the lung biopsy and my recommendation for the final treatment. I have answered all questions to patient's satisfaction. Coronary artery disease status post stent placement. Stable. He is on aspirin. He is also on Xarelto 2.5 mg. Hypertension. Patient is on metoprolol and losartan. Hiatal hernia and GERD. He is on Pepcid. Thank you very much for allowing me to participate in Albert Merino's evaluation and management. Please feel free to contact if I can be of any further assistance in your patient???s care requiringhematology or oncology evaluation. Sincerely, ? ? Álvaro Jacome M.D. cell TOBACCO COUNSELING He is not a tobacco/nicotine user. Álvaro Jacome MD ,08/13/2025 9:50 AM ? Total time spent 60 minutes, two third of the total time spent counseling patient [id number]. CC:?Shante Holguin MD OLL SERVICES ANALYST documented in this encounter Miscellaneous Notes * Addendum Note - Brian Yanez - 08/13/2025 10:05 AM CSTAddended by: BRIAN YANEZ on: 08/13/2025 10:05 AM Modules accepted: Orders OLL SERVICES ANALYST documented in this encounter Plan of Treatment Upcoming Encounters Date Type Department Care Team (Late st Contact Info) Description 09/02/2025 1:00 PM PAYROLL SERVICES ANALYST Office Visit [facility] Oncology and Hematology - Jason [address] [facility] [address] [place] [address] Álvaro Jacome MD [address] [facility] [address] [place] [address] Pending Results Name Type Priority Associated Diagnoses Date /Time TEMPUS XT DNA AND RNA Lab Routine Cancer of cardio-esophageal junction (CMS/HCC) 08/13/2025 10:05 AM PAYROLL SERVICES ANALYST TEMPUS XT NORMAL BLOOD Lab Routine Cancer of cardio-esophageal junction (CMS/HCC) 08/13/2025 10:05 AM PAYROLL SERVICES ANALYST Scheduled Orders Name Type Priority Associated Diagnoses Orde r Schedule CT BIOPSY LUNG LEFT Imaging Stat Lung nodule Expected: 08/14/2025, Expires: 08/13/2026 MISCELLANEOUS LAB TEST Lab Routine Cancer of cardio-esophageal junction (CMS/HCC) Expected: 08/13/2025, Expires: 08/13/2026 TEMPUS XT DNA AND RNA Lab Routine Cancer of cardio-esophageal junction (CMS/HCC) Expected: 08/13/2025, Expires: 08/13/2026 TEMPUS XF Lab Routine Cancer of cardio-esophageal junction (CMS/HCC) Expected: 08/13/2025, Expires: 08/13/2026 TEMPUS XT DNA AND RNA SOLID TUMOR Lab Routine Cancer of cardio-esophageal junction (CMS/HCC) Ordered: 08/13/2025 Scheduled Referrals Name Type Priority Associated Diagnoses Order Schedule AMB REFERRAL TO CHEMO TEACHING Outpatient Referral Routine Cancer of cardio-esophageal junction (CMS/HCC) Ordered: 08/13/2025 AMB REFERRAL TO COLORECTAL SURGERY Outpatient Referral Routine Cancer of cardio-esophageal junction (CMS/HCC) Ordered: 08/13/2025 documented as of this encounter Visit Diagnoses Diagnosis Lung nodule- Primary Solitary pulmonary nodule Cancer of cardio-esophageal junction (CMS/HCC) Malignant neoplasm of cardia documented in this encounter
--- OUTSIDE RECORDS SUMMARY | 2025-08-13 10:17 | XMS_ITS | Clinical Summary ---
Author Organization [facility] [employer] Address [address] [facility] [place] [address] Care Team Providers Care Security Control Room Officer Name Role Phone Kevin Brooks MD Primary Care Provider [phone] Source Comments [facility],non-owned Affiliates and Associated Physician Practices is amultiple site organization consisting of ambulatory clinics and hospital sitesin [place], [place], [place] and [place]. This disclosure is being madepursuant to the Care Everywhere program and may not contain all information available regarding this patient. Last updated 18.[facility] Allergies Active Allergy Reactions Criticality Noted Date [...] Department Care Team Description 06/28/2025 2:37 PM EMULSIFICATION OPERATOR - 06/28/2025 11:59 PM EMULSIFICATION OPERATOR Hospital Encounter [facility] - Outside Imaging Discharge Disposition: Home or Self Care 06/21/2025 Telephone [facility] - ENT [address] [place] [phone] Vladimir Greer MD Imaging 06/10/2025 Orders Only [facility] - ENT [address] [place] [phone] Vladimir Greer MD Hypopharyngeal cancer (HCC) ; 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 (HCC); Cancer of upper third of esophagus (HCC) 06/08/2025 [facility]phone [facility] [address] [place] [phone] Vladimir Greer MD Question (Diagnosis code) 05/31/2025 Telephone [facility] - ENT [address] [place] [address] Vladimir Greer MD Question 05/27/2025 Orders Only [facility] - ENT [facility] [place] [address] Vladimir Greer MD Hypopharyngeal cancer (HCC) ; Dysphonia from Last 3 Months Immunizations Immunization Administration Dates Next Due INFLUENZA VACCINE 05/31/2022, 1,06/03/2020,08/21/2019,06/19/20 18,05/03/2017,05/03/2016,06/11/2014,07/08/2013,07/02 PNEUMOCOCCAL PPSV23 06/11/2014,04/24/2011 Pneumococcal Pcv13 Conj [...] CALENDAR YEAR 2024 COVID-19 VACCINE ( - 2024- season) 2025 INFLUENZA VACCINE (#1) 2025 , 05/05/2021, 06/03/2020, Additional history exists PNEUMOCOCCAL VACCINE [...] THIGH OUTSIDE Routine 06/17/2025 2:39 PM CDT from Last 3 Months Results * PET CT SKULL TO MID THIGH OUTSIDE (06/17/2025 2:39 PM CDT) Narrative [facility] - 06/28/2025 2:39 PM EMULSIFICATION OPERATOR This is a study from an outside facility that has been uploaded into PACS. us Provider Digitize IMAGING Final Result [facility] from Last 3 Months Insurance [employer] MED[place] [place] SELF PAY NO INSURANCE Member Subscriber Plan / Payer (Ef fective for All Dates) Name:Albert Merino Member ID:Not on file Relation to Subscriber:Not on file Name:MEGANKAMALBERT MANCERA Subscriber ID:Not on file (Home) Address: [address] [place] [address] Payer ID:Not on file Group ID:Not on file Type:Self Pay Address: [facility] MED[facility] ADV HMO & PPO Care Teams Security Control Room Officer Relationship Specialty Start Date End Date Kevin Brooks MD [address] [place] [address] PCP - General Family Medicine 04/19/25
--- OUTSIDE RECORDS SUMMARY | 2025-08-13 10:17 | XMS_ITS | Clinical Summary ---
Author Organization [facility] Tamie biggs [facility] Address [address] [address] Care Team Providers Care Hospital Wellness Coordinator Name Role Phone Unavailable Primary Care Provider Unavailabl e Allergies No known active allergies Medications cilostazoL (PLETAL) 50 mg Tablet Take 50 mg by mouth 2 times daily. 03/26/2025 Active cyanocobalamin (VITAMIN B-12) 100 mcg tablet Take 50 mcg by mouth daily. Active famotidine (PEPCID) 20 mg tablet Take 20 mg by mouth daily. 03/03/2025 Active finasteride (PROSCAR) 5 mg tablet Take 5 mg by mouth daily. Active aspirin (EMILY CHEWABLE) 81 mg Tablet, Chewable Take 81 mg by mouth daily. Active losartan (COZAAR) 100 mg tablet Take 1 Tablet by mouth daily. 03/03/2025 Active metoprolol succinate (TOPROL XL) 25 mg Extended Release 24 hour tablet Take 25 mg by mouth daily. 11/19/2024 Active omeprazole (PriLOSEC) 40 mg Capsule, Delayed Release(E.C.) Take 40 mg by mouth daily before breakfast. 03/28/2025 Active Xarelto 2.5 mg Tablet Take 2.5 mg by mouth 2 times daily. 04/23/2025 Active multivitamin (DAILY-RYANNE) tablet Take 1 Tablet by mouth daily. Active Active Problems No known active problems Encounters Date Type Department Care Team Description 08/13/2025 9:15 AM DENTAL TREATMENT COORDINATOR Office Visit [facility] Oncology and Hematology - Jason [address] [facility] [place] [address] Álvaro Jacome MD Lung nodule (Primary Dx); Cancer of cardio-esophageal junction (CMS/HCC) from Last 3 Months Family History Medical History Relation Name Comments Pancreatic Cancer Brother 1 No Known Problems Brother 2 No Known Problems Child 1 No Known Problems Child 2 Cancer Father No Known Problems Mother No Known Problems Sister 1 No Known Problems Sister 2 No Known Problems Sister 3 Relation Name Status Comments Brother 1 Alive Brother 2 Alive Child 1 Alive Child 2 Alive Father Mother Sister 1 Alive Sister 2 Alive Sister [...] Comments Blood Pressure 168/106 08/13/2025 9:10 AM DENTAL TREATMENT COORDINATOR Pulse 86 08/13/2025 9:07 AM DENTAL TREATMENT COORDINATOR Temperature 36.1 C (97 F) 08/13/2025 9:07 AM DENTAL TREATMENT COORDINATOR Respiratory Rate 16 08/13/2025 9:07 AM DENTAL TREATMENT COORDINATOR Oxygen Saturation 95% 08/13/2025 9:07 AM DENTAL TREATMENT COORDINATOR Inhaled Oxygen Concentration - - Weight 64.7 kg (142 lb 9.6 oz) 08/13/2025 9:07 A M DENTAL TREATMENT COORDINATOR Height 177.8 cm (5' 10) 08/13/2025 9:07 AM DENTAL TREATMENT COORDINATOR Body Mass Index 20.46 08/13/2025 9:07 AM DENTAL TREATMENT COORDINATOR Plan of Treatment Upcoming Encounters Date Type Department Care Team (Late st Contact Info) Description 09/02/2025 1:00 PM DENTAL TREATMENT COORDINATOR Office Visit [facility] Oncology and Hematology - Jason [address] [facility] [address] [place] [address] Álvaro Jacome MD [address] [facility] [address] [place] [address] Health Maintenance Due Date Last Done Comments ZOSTER VACCINE (1 of 2) 01/24/1998 RSV VACCINE (60+ or ) (1 - 1-dose 75+ series) 01/24/2023 DTAP/TDAP/TD VACCINES (2 - T d or Tdap) 03/18/2023 03/18/2013 Medicare [place] ([place]) Prev entative Visit/Annual Wellness Visit 08/26/2024 INFLUENZA VACCINE (#1) 2025 PNEUMOCOCCAL VACCINE 50+ YEARS Completed 0 10/18/2015, 06/11/2014, 04/24/2011 Insurance [facility] MEDICAID [place]
--- OUTSIDE RECORDS SUMMARY | 2025-08-13 10:17 | XMS_ITS | Encounter Summary ---
Author Organization [facility] Address [address] [place] [address] Care Team Providers Care Parts Cleaner Name Role Phone Kevin Brooks MD Primary Care Provider [phone]- [phone] Encounter Details Date Type Department Care Team (Late st Contact Info) Description 03/17/2025 Lab Requisition [facility] - Pathology Lab [address] [place] [phone] Mateusz Knutson MD [address] [place] [phone] Localized swelling, mass and lump, unspecified [...] AM CDT) Case Report Flow Cytometry Case: [id number] Authorizing Provider: Mateusz Knutson Collected: 03/17/2025 10:50 AM MD Trevon Ordering Location: [facility] - Received: 03/17/2025 01:36 PM Pathology Lab Pathologist: Kim Reyes MD Specimen: Lymph Node, NECK 03/17/2025 3:33 PM T [facility] Final Diagnosis Lymph node, left jugular, flow cytometric immunophenotyping : - Quantity of hematopoietic cells insufficient for analysis 03/17/2025 3:33 PM CDT [facility] at 1533 CDT Flow Cytometry Interpretation A cytospin prepared from the flow cytometry specimen has been reviewed for supplier quality purposes. 03/17/2025 3:33 PM T [facility] Flow Cytometry Results Too few hematopoietic cells for flow cytometric analysis. 03/17/2025 3:33 PM T [facility] Reason for test Localized swelling, mass and lump, unspecified 03/17/2025 3:33 PM CDT [facility] Client Specimen ID # [id number] 03/17/2025 3:33 PM T [facility] Pathologist Location at [facility] 03/17/2025 3:33 PM T [facility] Disclaimer Test performed at [facility], [address] [place] [address], [address]. *The established laboratory minimum viability is 70%. [...] complexity clinical testing. 03/17/2025 3:33 PM T [facility] Embedded Images 3:33 PM T [facility] Pathology/Cytolo gy ENTIRE LYMPH NODE / Unknown 03/17/2025 10:50 AM CDT 03/17/2025 1:36 PM CDT Mateusz Knutson MD LAB - PATHOLOGY/CYT OLOGY ORDERABLES Final Result [facility] [address] [facility] [place] [address], [facility] [phone] documented in this encounter Visit Diagnoses Diagnosis Localized swelling, mass and lump, unspecified documented in this encounter Care Teams Parts Cleaner Relationship Specialty Start Date End Date Kevin Brooks MD [address] [place] [phone] PCP - General Family Medicine 04/19/25 documented as of this encounter
== END 2025-08-13 09:51 | disposition home or self-care (01) ==
PROVIDERS: PCP Family Medicine; Visit Provider Internal Medicine Hematology & Oncology
DX: C16.0 Malignant neoplasm of cardia (principal)
CPT/HCPCS: 36415